=== PATIENT | female | born 1960 | race Caucasian/White ===

== ENCOUNTER 2016-07-23 09:48 | Inpatient (IN) | payer MEDICAID, OTHER ==
[~2016-07-23] VITALS: Ht 162.6 cm; Wt 62.2 kg
[~2016-07-23 09:48] MED LIST: QUET1TAB7 PO; SERO100T PO
[2016-07-23 09:51] VITALS: BP 138/81; PULSE 109; RESP 14; TEMP 97.7; O2SAT 98
--- NOTE | 2016-07-23 10:52 | RADRPT ---
EXAM DATE/TIME: 07/23/2016 10:15 [facility] COMPARISON: No previous studies available for comparison. INDICATIONS : Shortness of breath MEDICAL HISTORY : None. SURGICAL HISTORY : None. ENCOUNTER: Initial ACUITY: 1 day PAIN SCORE: 2/10 LOCATION: Bilateral chest FINDINGS: A single view of the chest demonstrates the lungs to be symmetrically aerated without evidence of mas s, infiltrate or effusion. The cardiomediastinal contours are unremarkable. Osseous structures are intact. CONCLUSION: Normal examination. Bishop Roca MD on July 23, 2016 at 10:49 Board Certified Radiologist. This report was verified electronically.
--- NOTE | 2016-07-23 11:02 | PD ---
HPI Chief Complaint: Respiratory Distress Time Seen by Provider: 10:55 Travel History International Travel<30 days: No Contact w/Intl Traveler<30days: No Traveled to known affect area: No History of Present Illness HPI 55-year-old female with history of schizophrenia, lives alone according to her brother, presents to the ER sent in by [facility] because they think that she can no longer take care of herself. She apparently is not taking care of herself according to her brother. Apparently, she was being evaluated there and became very short of breath, brother thinks that she may have been anxious. She is now settled down according to the brother. Modifying Factors: None Associated Signs & Symptoms: Medical clearance, shortness of breath episode, [place] act Risk Factors: History of schizophrenia PFSH Past Medical History Bipolar Disorder: Yes Anxiety: Yes Depression: Yes Cancer: No Cardiovascular Problems: Yes ([place] ) Diabetes: No Diminished Hearing: No Endocrine: No Gastrointestinal Disorders: No Genitourinary: No Headaches: No Immune Disorder: No Implanted Vascular Access Dvce: No Musculoskeletal: No Neurologic: No Psychiatric: No Reproductive: No Respiratory: No Myocardial Infarction: Yes Schizophrenia: Yes Seizures: No ?: Not : 4 Para: 3 Past Surgical History Surgical History: Unable to Obtain Other Surgery: No Social History Alcohol Use: No Tobacco Use: No Substance Use: No Allergies-Medications (Allergen,Severity, Reaction): Coded Allergies: Sulfa (Verified Allergy, Severe, 07/23/16) Reported Meds & Prescriptions Reported Meds & Active Scripts Active Seroquel (Quetiapine Fumarate) 100 Mg Tab 150 Mg PO HS 15 Days Review of Systems Except as stated in HPI: all other systems reviewed are Neg Physical Exam Narrative GENERAL: Well-nourished, well-developed mildly anxious middle age white female patient who is not in acute distress. Stares off into space, awake, alert, but not talking to me. SKIN: Warm and dry. HEAD: Normocephalic. EYES: No scleral icterus. No injection or drainage. NECK: Supple, trachea midline. CARDIOVASCULAR: Regular rate and rhythm without murmurs, gallops, or rubs. RESPIRATORY: Breath sounds equal bilaterally. No accessory muscle use. GASTROINTESTINAL: Abdomen soft, non-tender, nondistended. MUSCULOSKELETAL: No cyanosis, or edema. BACK: Nontender without obvious deformity. No CVA tenderness. Data Data Last Documented VS Vital Signs Date Time Temp Pulse Resp B/P Pulse Ox O2 Delivery O2 Flow Rate FiO2 07/23/16 09:51 97.7 109 14 138/81 98 Room Air Orders Chest, Single Ap (07/23/16 10:18) Complete Blood Count With Diff (07/23/16 10:55) Comprehensive Metabolic Panel (07/23/16 10:55) Drug Screen, Random Urine (07/23/16 10:55) Psych Screen (07/23/16 10:55) Us Abdomen Gallbladder (07/23/16 12:12) Labs Laboratory Tests Test 07/23/16 07/23/16 10:50 11:10 White Blood Count 10.9 TH/MM3 Red Blood Count 4.76 MIL/MM3 Hemoglobin 15.0 GM/DL Hematocrit 43.2 % Mean Corpuscular Volume 90.8 FL Mean Corpuscular Hemoglobin 31.4 PG Mean Corpuscular Hemoglobin 34.6 % Concent Red Cell Distribution Width 13.3 % Platelet Count 210 TH/MM3 Mean Platelet Volume 8.5 FL Neutrophils (%) (Auto) 72.5 % Lymphocytes (%) (Auto) 21.1 % Monocytes (%) (Auto) 6.0 % Eosinophils (%) (Auto) 0.2 % Basophils (%) (Auto) 0.2 % Neutrophils # (Auto) 7.9 TH/MM3 Lymphocytes # (Auto) 2.3 TH/MM3 Monocytes # (Auto) 0.7 TH/MM3 Eosinophils # (Auto) 0.0 TH/MM3 Basophils # (Auto) 0.0 TH/MM3 CBC Comment DIFF FINAL Differential Comment Sodium Level 137 MEQ/L Potassium Level 4.3 MEQ/L Chloride Level 105 MEQ/L Carbon Dioxide Level 21.7 MEQ/L Anion Gap 10 MEQ/L Blood Urea Nitrogen 17 MG/DL Creatinine 0.82 MG/DL Estimat Glomerular Filtration 73 ML/MIN Rate Random Glucose 92 MG/DL Calcium Level 9.2 MG/DL Total Bilirubin 0.5 MG/DL Aspartate Amino Transf 57 U/L (AST/SGOT) Alanine Aminotransferase 71 U/L (ALT/SGPT) Alkaline Phosphatase 122 U/L Total Protein 7.3 GM/DL Albumin 3.7 GM/DL Urine Opiates Screen NEG Urine Barbiturates Screen NEG Urine Amphetamines Screen NEG Urine Benzodiazepines Screen NEG Urine Cocaine Screen NEG Urine Cannabinoids Screen NEG MDM Medical Decision Making Medical Screen Exam Complete: Yes Emergency Medical Condition: Yes Medical Record Reviewed: Yes Interpretation(s) Laboratory Tests Test 07/23/16 10:50 Neutrophils (%) (Auto) 72.5 % (16.0-70.0) Neutrophils # (Auto) 7.9 TH/MM3 (1.8-7.7) Estimat Glomerular Filtration 73 ML/MIN (>89) Rate Aspartate Amino Transf 57 U/L (15-37) (AST/SGOT) Alanine Aminotransferase 71 U/L (10-53) (ALT/SGPT) Alkaline Phosphatase 122 U/L (45-117) Last 24 hours Impressions Chest X-Ray 07/23/16 1018 Signed Impressions: Service Date/Time: Saturday, July 23, 2016 10:15 - CONCLUSION: Normal examination. Bishop Roca MD Differential Diagnosis Medical clearance/anxiety/redness of breath/schizophrenia Narrative Course Patient is in no acute distress on evaluation. Her saturations are normal. Patient's brother states that she was anxious when initially evaluated at [facility]. She does not appear to be anxious now. I suspect that shortness of breath may have been secondary to anxiety. Chest x-ray did not show any signs of acute pulmonary processes. Her lab work didn't indicate some mild elevation of liver enzymes of unknown etiology. She has not been vomiting and abdomen exam is fairly nontender. Right upper quadrant ultrasound was done to evaluate further and did not show any signs of acute processes. At this point, my plan would be to medically clear her for psychiatric evaluation. Diagnosis Primary Impression: Schizophrenia Disposition: 65 DISC TO [facility] Condition: Stable Rodo Head MD Jul 23, 2016 11:02
[2016-07-23 11:23] LABS: AUTOMATED NEUTROPHIL # 7.9 TH/MM3 (1.8-7.7); BASOPHIL % 0.2 % (0.0-2.0); EOSINOPHIL % 0.2 % (0.0-4.0); HEMATOCRIT 43.2 % (35.0-46.0); HEMO FLAGS DIFF FINAL; LYMPH % 21.1 % (9.0-44.0); LYMPHOCYTE # 2.3 TH/MM3 (1.0-4.8); MEAN CELL VOLUME 90.8 FL (80.0-100.0); MEAN CORPUSCULAR HEMOGLOBIN 31.4 PG (27.0-34.0); MEAN CORPUSCULAR HGB CONC 34.6 % (32.0-36.0); NEUT % 72.5 % (16.0-70.0); PLATELET COUNT 210 TH/MM3 (150-450); RED BLOOD COUNT 4.76 MIL/MM3 (4.00-5.30); RED CELL DISTRIBUTION WIDTH 13.3 % (11.6-17.2); WHITE BLOOD COUNT 10.9 TH/MM3 (4.0-11.0)
[2016-07-23 11:29] LABS: AMPHETAMINE, URINE NEG (NEG); BARBITURATES, URINE NEG (NEG); COCAINE, URINE NEG (NEG)
[2016-07-23 11:58] LABS: ALKALINE PHOSPHATASE 122 U/L (45-117); ALT (GPT) 71 U/L (10-53); ANION GAP 10 MEQ/L (5-15); AST (GOT) 57 U/L (15-37); BICARBONATE 21.7 MEQ/L (21.0-32.0); BLOOD UREA NITROGEN 17 MG/DL (7-18); CHLORIDE 105 MEQ/L (98-107); GLOMERULAR FILTRATION RATE 73 ML/MIN (>89); SODIUM (NA) 137 MEQ/L (136-145); TOTAL BILIRUBIN ADULT 0.5 MG/DL (0.2-1.0)
[2016-07-23 12:02] LABS: POTASSIUM 4.3 MEQ/L (3.5-5.1)
[2016-07-23 14:00] VITALS: BP 131/71; PULSE 97; RESP 17; O2SAT 97
--- NOTE | 2016-07-23 14:22 | RADRPT ---
EXAM DATE/TIME: 07/23/2016 13:18 [facility] COMPARISON: No previous studies available for comparison. INDICATIONS : Nausea and vomiting. MEDICAL HISTORY : Myocardial infarction. Schizophrenia. Bipolar disorder. SURGICAL HISTORY : Unable to obtain. ENCOUNTER: Initial ACUITY: 1 day PAIN SCORE: Nonresponsive. LOCATION: Right upper quadrant MEASUREMENTS: LIVER: 13.3 cm length COMMON DUCT: 3 mm RIGHT KIDNEY: 10.2 x 5.2 x 5.0 cm FINDINGS: LIVER: Normal echotexture without focal lesion or ductal dilatation. COMMON DUCT: No intraluminal mass or stone visualized. GALLBLADDER: Contains no stones, demonstrates no wall thickening or pericholecystic fluid. PANCREAS: Not visualized due to overlying bowel gas.. RIGHT KIDNEY: No evidence of hydronephrosis, stone, or mass. CONCLUSION: Normal examination. Pancreas not visualized due to overlying bowel gas Bishop Roca MD on July 23, 2016 at 14:19 Board Certified Radiologist. This report was verified electronically.
[2016-07-23 18:25] VITALS: BP_SYST 0
[2016-07-23 22:10] VITALS: BP 136/69; PULSE 97; RESP 20; O2SAT 97
[2016-07-24 02:15] VITALS: BP 121/64; PULSE 99; RESP 18; TEMP 98; O2SAT 97
--- NOTE | 2016-07-24 10:03 | PD ---
History of Present Illness Chief Complaint: Respiratory Distress Time Seen by Provider: 09:45 Travel History International Travel<30 Days: No Contact w/Intl Traveler<30days: No Known affected area: No Legal Status Legal Status: Voluntary History of Present Illness: History of Present Illness 55-year-old female with history of schizophrenia who presents to the ER on a voluntary status for a psychiatric evaluation. The patient was taken to [facility] by her brother because he thinks that she can no longer take care of herself and not taking care of herself according to her brother. Apparently while she was being being evaluated there she became very short of breath and was sent here for medical clearance.She was evaluated and medically cleared by the ED and referred to psychiatry for further evaluation. Staff was unable to contact her brother yesterday for collateral information. As per EMR this patient was most recently hospitalized at [facility] on Jun 17 and discharged on Jun 21, 2016. She was under the care of Dr. Rojo. Since her discharge she has been to ED x 3 for psychiatric complaints. Patient is seen in J pod. Awake, alert female who appears disheveled in her appearance. . She has been calm and has not presented any behavioral concerns. She slept well. She answers questions but there is increased latency of response. She appears internally preoccupied. She denies any suicidal or homicidal ideation, intent or plan. She denies any hallucinations and states " I hear what is going on ". When asked why she came to the hospital she states " My chest was heavy". When asked if she has been taking care of herself she does state that she has been eating. Clinical information is limited as she does not provide much information. I have placed a call to her brother Mau at [phone]. I am unable to leave a message as the mail box is full. PFSH Past Medical History Bipolar Disorder: Yes Anxiety: Yes Depression: Yes Cancer: No Cardiovascular Problems: Yes ([place] ) Diabetes: No Diminished Hearing: No Endocrine: No Gastrointestinal Disorders: No Genitourinary: No Headaches: No Immune Disorder: No Implanted Vascular Access Dvce: No Musculoskeletal: No Neurologic: No Psychiatric: No Reproductive: No Respiratory: No Myocardial Infarction: Yes Schizophrenia: Yes Seizures: No ?: Not : 4 Para: 3 Past Surgical History Surgical History: Unable to Obtain Other Surgery: No Psychiatric History Psychiatric History Hx Psychiatric Treatment: HAD SOME TREATMENT IN [place] PRIOR TO HER BROTHER MOVING HERE AGO. WAS DISCHARGED FROM [facility] Novemebr 25 History of Inpatient Treatment: Yes Guns or firearms in home: No Social History Single female who lives with her brother Hx Alcohol Use: No Hx Tobacco Use: No Hx Substance Use: No Hx of Substance Use Treatment: No Family Psychiatric History Unknown at this time Allergies-Medications (Allergen,Severity, Reaction): Coded Allergies: Sulfa (Verified Allergy, Severe, 07/23/16) Reported Meds & Prescriptions Reported Meds & Active Scripts Active Seroquel (Quetiapine Fumarate) 100 Mg Tab 150 Mg PO HS 15 Days Review of Systems ROS Limitations: Clinical Condition Exam Alert: Yes [place]: Person Mood: Other (withdrawn) Affect: Restricted Speech: Clear (slowed responses) Memory Intact: Comment (not formally tested. ) Hallucinations: Other (denies but appears internally preocupied at this time.) Suicidal: Ideation (deneis any) Homicidal: Ideation Insight/Judgement poor. Poor MDM Medical Decision Making Medical Record Reviewed: Yes Assessment/Plan 55 year old female with history of schizophrenia who is under a voluntary status for psychiatric evaluation for inability to care for herself. This patient has presented to Ed x 3 since her discharge from [facility] on June 21, 2016. Patient is a poor historian and we have been unable to contact her brother for further information. Due to multiple representations to the Ed in a short amount of time and inability to obtain information from her brother she will be admitted to [facility] for further evaluation, treatment and stabilization. Orders Chest, Single Ap (07/23/16 10:18) Complete Blood Count With Diff (07/23/16 10:55) Comprehensive Metabolic Panel (07/23/16 10:55) Drug Screen, Random Urine (07/23/16 10:55) Psych Screen (07/23/16 10:55) Us Abdomen Gallbladder (07/23/16 12:12) Diet Regular Basic (07/23/16 Dinner) Diet Regular Basic (07/24/16 Breakfast) Diet Regular Basic (07/24/16 Lunch) Results Vital Signs Date Time Temp Pulse Resp B/P Pulse Ox O2 Delivery O2 Flow Rate FiO2 07/24/16 02:15 98.0 99 18 121/64 97 07/23/16 22:10 97 20 136/69 97 07/23/16 18:25 0/ 07/23/16 14:00 97 17 131/71 97 Room Air Laboratory Tests Test 07/23/16 07/23/16 10:50 11:10 White Blood Count 10.9 Red Blood Count 4.76 Hemoglobin 15.0 Hematocrit 43.2 Mean Corpuscular Volume 90.8 Mean Corpuscular Hemoglobin 31.4 Mean Corpuscular Hemoglobin 34.6 Concent Red Cell Distribution Width 13.3 Platelet Count 210 Mean Platelet Volume 8.5 Neutrophils (%) (Auto) 72.5 Lymphocytes (%) (Auto) 21.1 Monocytes (%) (Auto) 6.0 Eosinophils (%) (Auto) 0.2 Basophils (%) (Auto) 0.2 Neutrophils # (Auto) 7.9 Lymphocytes # (Auto) 2.3 Monocytes # (Auto) 0.7 Eosinophils # (Auto) 0.0 Basophils # (Auto) 0.0 CBC Comment DIFF FINAL Differential Comment Sodium Level 137 Potassium Level 4.3 Chloride Level 105 Carbon Dioxide Level 21.7 Anion Gap 10 Blood Urea Nitrogen 17 Creatinine 0.82 Estimat Glomerular Filtration 73 Rate Random Glucose 92 Calcium Level 9.2 Total Bilirubin 0.5 Aspartate Amino Transf 57 (AST/SGOT) Alanine Aminotransferase 71 (ALT/SGPT) Alkaline Phosphatase 122 Total Protein 7.3 Albumin 3.7 Urine Opiates Screen NEG Urine Barbiturates Screen NEG Urine Amphetamines Screen NEG Urine Benzodiazepines Screen NEG Urine Cocaine Screen NEG Urine Cannabinoids Screen NEG Diagnosis Primary Impression: Schizophrenia Admitting Information Admitting Physician Requests: Admit Disposition: 65 DISC TO PSYCH CARE FACILITY Condition: Stable Problem Qualifiers Primary Impression: Schizophrenia Qualified Code: F20.9 - Schizophrenia, unspecified type Lynnette Perez Jul 24, 2016 10:03
[2016-07-24 10:30] VITALS: BP 112/59; PULSE 99; RESP 18
[2016-07-24] MEDS ORDERED: ALUMINUM/MAGNESIUM/SIMETH 30 ML CUP PO PRN (12:00)
[2016-07-24] MEDS ORDERED: MAGNESIUM HYDROXIDE SUSP 30 ML CUP PO PRN (12:00)
[2016-07-24 13:40] VITALS: BP 114/77; PULSE 110; RESP 18; TEMP 97.8
[2016-07-24 13:53] VITALS: PULSE 88
--- NOTE | 2016-07-24 18:24 | HHI.HP ---
Provisional Diagnosis Admission Date Jul 24, 2016 at 11:55 [place] I. 1. Schizophrenia, undifferentiated type, acute exacerbation [place] II. Deferred [place] V. GAF is 35 presently Certification of Person's Competence To Provide Express and Informed Consent I have personally examined Jessica Villarreal , a person being served at [facility] on, Jul 24, 2016 18:23. Express and informed consent means consent voluntarily given in writing, by a competent person, after sufficient explanation and disclosure of the subject matter involved to enable the person to make a knowing and willful decision without any element of force, fraud, deceit, duress, or other form of constraint or coercion. This person is 18 years of age or older, is not now known to be incompetent to consent to treatment with a guardian advocate, and does not have a health care surrogate or proxy currently making medical treatment decisions. I have found this person to be one of the following: [x] Competent to provide express and informed consent, as defined above, for voluntary admission to this facility and is competent to provide express and informed consent for treatment. He/she has the consistent capacity to make well reasoned, willful, and knowing decisions concerning his or her medical or mental health treatment. The person fully and consistently understands the purpose of the admission for examination/placement and is fully capable of personally exercising all rights assured under [place] Incompetent to provide express and informed consent to voluntary admission, and this is incompetent to provide express and informed consent to treatment. The person must be transferred to involuntary status and a petition for a guardian advocate filed with the Circuit Court. [] Refusing to provide express and informed consent to voluntary admission but is competent to provide express and informed consent for treatment. The person must be discharged or transferred to involuntary status. Form shall be completed within 24 hours of a person's arrival at the receiving facility and filed in the clinical record of each person: 1. Admitted on a voluntary basis 2. Permitted to provide express and informed consent to his/her own treatment 3. Allowed to transfer from involuntary to voluntary status 4. Prior to permitting a person to consent to his or her own treatment after having been previously found incompetent to consent to treatment. History of Present Illness Capacity: Has Capacity HPI Ms. Villarreal is a 55-year-old female with a history of schizophrenia who presented voluntarily to the emergency department with complaints of shortness of breath. Patient was evaluated by the ED provider and it was felt that patient's symptoms were chiefly psychiatric in origin. Patient was evaluated by psychiatric nurse practitioner recommended admission to the inpatient psychiatric unit. Patient is known to me from recent psychiatric admission in May. EMR reviewed. Patient seen and examined. Chart reviewed. Case discussed with nursing staff who notes that the patient was quite malodorous and disheveled on arrival here. She also notes that the patient had the supply of Seroquel that had been provided to her on discharge from the hospital unopened in a sealed paper bag. On my examination today, the patient has some degree of behavioral disorganization and disinhibition, belching repeatedly throughout the examination. She says that she has come into the hospital because "I had an episode." She reports that she has been adherent with her psychotropic medications, but this seems questionable given the information from nursing staff noted above. She has some degree of thought disorder with thought blocking. She denies audiovisual hallucinations but is frankly responding to internal stimuli, and when I note this to her she does agree that she is in fact experiencing AVH. Her mood is good and her sleep and appetite are fair. She denies any suicidal or homicidal thoughts. The remainder of the psychiatric ROS is negative. Past psychiatric history: Patient is likely an unreliable historian in her present state. Please see previous history and physical examination. Patient does maintain that she has been following up psychiatrically on an outpatient basis. She denies any interval psychiatric admissions or suicide attempts. Review of Systems ROS Limitations: Psychotic, Poor Historian Other No reported headache, vision or hearing changes, chest pain, shortness of breath , bowel or bladder issues. No other physical complaints today. Past Psych History Psychological trauma history No reported trauma history to me Violence risk - others (6 mos) Lower imminent risk. No homicidal ideation. Violence risk - self (6 mos) Concerned that this is elevated due to self-neglect. Substance Abuse History Drugs/Alcohol past 12 months Patient denies any abuse of drugs or alcohol. Toxicology negative on presentation here. Past Family Social History Coded Allergies: Sulfa (Verified Allergy, Severe, 07/23/16) Past Medical History See electronic medical record Active Scripts Quetiapine (Seroquel)100 Mg Aoo010 Mg PO HS 15 Days Ref 1 Prov:Neil Rojo MD 06/21/16 Discontinued Scripts Quetiapine 25 Mg Tab25 Mg PO BID@09,13 15 Days Ref 1 Prov:Neil Rojo MD 06/21/16 Current Medications Medications (Trade) Dose Ordered Sig/Preet Route Start Time Stop Time Status Last Admin (Tylenol) 650 mg Q4H PRN PO 07/24/16 12:00 (Milk Of Magnesia Liq) 30 ml DAILY PRN PO 07/24/16 12:00 (Mag-Al Plus Susp Liq) 30 ml Q6H PRN PO 07/24/16 12:00 Family History Patient acknowledges a family history of psychiatric illness but is unable to describe exactly what sort of family history she has. Social History Patient reports that she is no longer living with her brother and has been staying by herself. She has a 12th grade education. She is presently on disability. She has 3 children and some grandchildren. She denies any or legal history. No reported access to guns or firearms. Patient's Strengths (min. 2) In a monitored setting. Verbally fluent. Physical Exam A physical examination was completed in the emergency room by the ER staff and the patient was medically cleared. On my examination today, the patient appears to be in no acute physical distress. She does have some chewing movements of her mouth but otherwise no abnormal motor movements are noted. In particular no hand tremor, no dystonia, no other dyskinetic movements. Labs and vital signs reviewed. Vital Signs Vital Signs Date Time Temp Pulse Resp B/P Pulse Ox O2 Delivery O2 Flow Rate FiO2 07/24/16 13:53 88 07/24/16 13:40 97.8 18 114/77 07/24/16 10:30 Room Air 07/24/16 02:15 97 Lab Results Item Value Date Time White Blood Count 10.9 TH/MM3 07/23/16 1050 Hemoglobin 15.0 GM/DL 07/23/16 1050 Platelet Count 210 TH/MM3 07/23/16 1050 Sodium Level 137 MEQ/L 07/23/16 1050 Potassium Level 4.3 MEQ/L 07/23/16 1050 Chloride Level 105 MEQ/L 07/23/16 1050 Carbon Dioxide Level 21.7 MEQ/L 07/23/16 1050 Blood Urea Nitrogen 17 MG/DL 07/23/16 1050 Creatinine 0.82 MG/DL 07/23/16 1050 Aspartate Amino Transf (AST/SGOT) 57 U/L H 07/23/16 1050 Alanine Aminotransferase (ALT/SGPT) 71 U/L H 07/23/16 1050 Alkaline Phosphatase 122 U/L H 07/23/16 1050 EKG reviewed Mental Status Examination Patient is in hospital [facility]. She is disheveled. She is awake and alert and oriented to person, place and date. No evidence of delirium. Motoric abnormalities as noted above. Speech is somewhat halting. Language and fund of knowledge are difficult to assess given her thought disorder but seem adequate for age. Mood is described as good, and affect is somewhat silly and inappropriate to the situation. Thought process slowed with thought blocking. Denies AVH but appears internally preoccupied. No bernardo delusional material. Denies suicidal or homicidal ideation. Insight and judgment are fair at best. Previous Suicide Attempts: No Previous Homicide Attempts: No Assessment & Plan Problem List: (1) Schizophrenia ICD Code: F20.9 Assessment & Plan This is a 55-year-old female with psychiatric history as detailed above who presents on a voluntary basis to the emergency department and is now admitted to the inpatient psychiatric unit. The patient has a history of schizophrenia, and it appears that she has been nonadherent with her psychotropic medications. She did respond nicely to Seroquel last time. Presently she has disorganized behavior and thought processes with thought blocking. She does have some chewing movements of her mouth which may reflect poor dentition or other dental/oral issues or may represent withdrawal emergent dyskinesias. Patient requires psychiatric admission at this time for safety, observation and stabilization. --Admit inpatient --Voluntary status --Check LFTs in the morning. Hemoglobin A1c and lipid panel. --Resume Seroquel but at reduced dose given likely nonadherence. Seroquel 100 mg at bedtime. --Atarax as needed for anxiety. Cogentin as needed for EPS. --Vitals every shift --Counselor to see --Disposition planning --Estimated length of stay: 5-7 days Discharge Planning Pending psychiatric stabilization Request HC Surrog/Guard Advoc?: No Problem Qualifiers (1) Schizophrenia: Qualified Code: F20.3 - Undifferentiated schizophrenia Neil Rojo MD Jul 24, 2016 18:24
[2016-07-24] MEDS ORDERED: BENZTROPINE MESYLATE 2 MG/2 ML VIAL IM PRN (18:30)
[2016-07-24] MEDS ORDERED: BENZTROPINE MESYLATE 1 MG TAB PO PRN (18:30)
[2016-07-24] MEDS ORDERED: QUEtiapine FUMARATE 100 MG TAB PO SCH (21:00)
[2016-07-25 06:13] VITALS: BP 93/62; PULSE 92; RESP 16; TEMP 97.7
[2016-07-25 07:48] LABS: ALKALINE PHOSPHATASE 118 U/L (45-117); ALT (GPT) 52 U/L (10-53); AST (GOT) 22 U/L (15-37); HDL CHOLESTEROL 54.9 MG/DL (40.0-60.0); INDIRECT BILIRUBIN 0.4 MG/DL (0.0-0.8); LDL CHOLESTEROL 97 MG/DL (0-99); TOTAL BILIRUBIN ADULT 0.5 MG/DL (0.2-1.0)
--- NOTE | 2016-07-25 11:42 | EKG ---
Date Performed: 07/24/2016 Time Performed: 16:24:46 PTAGE: 55 years EKG: Sinus rhythm POSSIBLE RIGHT VENTRICULAR CONDUCTION DELAY BORDERLINE ECG NO PREVIOUS TRACING DOCTOR: Jesse Jhaveri Interpretating Date/Time 07/25/2016 11:39:06
--- NOTE | 2016-07-25 11:51 | HHI.PYPN ---
Subjective Remarks Patient was seen and discussed with the staff radiation therapist. Patient reported that she has been keeping to herself and hallucinating. No behavior or management problem reported. At times she has been burping. She also had some involuntary movement of the tongue muscles. May be tardive dyskinesia. She was advised to continue with the same treatment. Patient is compliant in taking medication Review of Systems Psychiatric: COMPLAINS OF: Mood changes, Depression, Hallucinations, Delusions Other Review of systems same as that of 07/24/16 Objective Alert: Yes [place]: Person, Place Mood: Other (withdrawn) Affect: Restricted Memory Intact: Comment (not formally tested. But seems impaired for recent events) Hallucinations: Other (denies but appears internally preocupied at this time.) Delusions: Yes Delusion Type: Paranoid Suicidal: Ideation (deneis any) Homicidal: Ideation Insight/Judgement Limited to poor Labs Test 07/25/16 06:40 Total Bilirubin 0.5 MG/DL Direct Bilirubin 0.1 MG/DL Indirect Bilirubin 0.4 MG/DL Aspartate Amino Transf 22 U/L (AST/SGOT) Alanine Aminotransferase 52 U/L (ALT/SGPT) Alkaline Phosphatase 118 U/L Total Protein 6.7 GM/DL Albumin 3.3 GM/DL Triglycerides Level 94 MG/DL Cholesterol Level 171 MG/DL LDL Cholesterol 97 MG/DL HDL Cholesterol 54.9 MG/DL Cholesterol/HDL Ratio 3.11 RATIO Vitals/IOs Vital Signs Date Time Temp Pulse Resp B/P Pulse Ox O2 Delivery O2 Flow Rate FiO2 07/25/16 06:13 97.7 92 16 93/62 07/24/16 10:30 Room Air 07/24/16 02:15 97 Assessment & Plan Problem List: (1) Schizophrenia ICD Code: F20.9 Assessment & Plan Estimated LOS: days Justification for Cont. Inpt. Monitoring and titrating of the medication to stabilize psychotic symptoms Request HC Surrog/Guard Advoc?: No Problem Qualifiers (1) Schizophrenia: Qualified Code: F20.3 - Undifferentiated schizophrenia Claudy Reed MD Jul 25, 2016 11:51
[2016-07-25] MEDS: hydrOXYzine HCL 50 MG TAB PO PRN ×2 (12:56→21:22)
[2016-07-25 13:14] LABS: HEMOGLOBIN A1a 1.5 %; HEMOGLOBIN A1b 0.9 %; HEMOGLOBIN Ao 85.2 %; HEMOGLOBIN F 1.3 %; HEMOGLOBIN LA1C 1.8 %; HEMOGLOBIN P3 3.5 %
[2016-07-25] MEDS: QUEtiapine FUMARATE 100 MG TAB PO SCH (17:06)
[2016-07-25 18:19] VITALS: BP 110/74; PULSE 86; RESP 18; TEMP 98.3
[2016-07-26] MEDS: ACETAMINOPHEN 325 MG TAB PO PRN (00:30)
[2016-07-26 05:24] VITALS: BP 105/55; PULSE 71; RESP 18; TEMP 98.7; O2SAT 98
[2016-07-26] MEDS: QUEtiapine FUMARATE 100 MG TAB PO SCH ×2 (09:31→12:10)
--- NOTE | 2016-07-26 15:26 | HHI.PYPN ---
Subjective Remarks Pt seen and examined in coverage for Dr. West. Chart reviewed. Case d/w RN. On my examination today, patient continues to display a silly affect. Wants to adjust med because "Seroquel didn't put me to sleep." Denies SI/HI/AVH. Denies side effects from meds. Review of Systems ROS Limitations: Poor Historian Other No reported somatic complaints. Objective Alert: Yes [place]: Person, Place (at least) Mood: Calm Affect: Other (silly affect) Memory Intact: Comment (Not formally assessed.) Hallucinations: Other (Denies AVH) Delusions: No Delusion Type: Other (No bernardo delusions) Suicidal: Ideation (Denies SI) Homicidal: Ideation (Denies HI) Insight/Judgement Poor Remarks No abnormal motor movements noted. Labs Labs reviewed. Vitals/IOs Vital Signs Date Time Temp Pulse Resp B/P Pulse Ox O2 Delivery O2 Flow Rate FiO2 07/26/16 05:24 98.7 71 18 105/55 98 07/24/16 10:30 Room Air Assessment & Plan Problem List: (1) Schizophrenia ICD Code: F20.9 Assessment & Plan Adjust Seroquel dosing to place bulk of the dose at HS. Continue other medications and care as ordered. Justification for Cont. Inpt. Adjusting medications. Discharge Planning Pending psychiatric stabilization. Request HC Surrog/Guard Advoc?: No Problem Qualifiers (1) Schizophrenia: Qualified Code: F20.3 - Undifferentiated schizophrenia Neil Rojo MD Jul 26, 2016 15:25
[2016-07-26 19:32] VITALS: BP 115/58; PULSE 93; RESP 18; TEMP 97.8; O2SAT 98
[2016-07-26] MEDS: hydrOXYzine HCL 50 MG TAB PO PRN (21:20)
[2016-07-26] MEDS: QUEtiapine FUMARATE 200 MG TAB PO SCH (21:20)
[2016-07-27 06:20] VITALS: BP 112/54; PULSE 104; RESP 18; TEMP 98.7; O2SAT 96
[2016-07-27] MEDS: QUEtiapine FUMARATE 100 MG TAB PO SCH (09:21)
[2016-07-27 10:11] VITALS: BP 97/62; PULSE 89; RESP 18; O2SAT 100
--- NOTE | 2016-07-27 12:48 | HHI.PYPN ---
Subjective Remarks Patient seen and examined with nursing staff. Chart reviewed. Case discussed with nursing staff reports patient has been no behavioral problem. On my examination today, patient is eating her lunch in the day area. She declines extended interview. She has no complaints, and denies side effects from medications. Review of Systems ROS Limitations: Psychotic, Poor Historian Other No physical complaints today Objective Alert: Yes [place]: Person, Place Mood: Calm Affect: Blunted Memory Intact: Comment (Not formally assessed.) Hallucinations: Other (no AVH) Delusions: No Delusion Type: Other (limited sample but no bernardo delusions) Suicidal: Ideation (no SI voiced) Homicidal: Ideation (no HI voiced) Insight/Judgement Poor Remarks Appears to have some EPS but no dyskinesias. No other motoric abnormalities noted. Speech wnl for rate. Labs Labs reviewed. No new labs. Vitals/IOs Vital Signs Date Time Temp Pulse Resp B/P Pulse Ox O2 Delivery O2 Flow Rate FiO2 07/27/16 10:11 89 18 97/62 100 07/27/16 06:20 98.7 07/24/16 10:30 Room Air Assessment & Plan Problem List: (1) Schizophrenia ICD Code: F20.9 Assessment & Plan Add some scheduled Cogentin for probable EPS. Continue other medications and care as ordered. Justification for Cont. Inpt. Risk for decompensation Discharge Planning Per Dr. West Request HC Surrog/Guard Advoc?: No Problem Qualifiers (1) Schizophrenia: Qualified Code: F20.3 - Undifferentiated schizophrenia Neil Rojo MD Jul 27, 2016 12:48
[2016-07-27] MEDS ORDERED: PILL SPLITTER OTHER PRN (13:15)
[2016-07-27 18:00] VITALS: PULSE 87; RESP 16; O2SAT 99
[2016-07-27] MEDS: QUEtiapine FUMARATE 200 MG TAB PO SCH (21:42)
[2016-07-27] MEDS: BENZTROPINE MESYLATE 1 MG TAB PO SCH (21:43)
[2016-07-28 06:36] VITALS: BP 93/63; PULSE 83; RESP 18; TEMP 97.9; O2SAT 96
[2016-07-28] MEDS: BENZTROPINE MESYLATE 1 MG TAB PO SCH ×2 (08:36→21:01)
[2016-07-28] MEDS: QUEtiapine FUMARATE 100 MG TAB PO SCH (08:36)
--- NOTE | 2016-07-28 15:39 | HHI.PYPN ---
Subjective Remarks Patient seen and examined with nursing staff. Chart reviewed. Case discussed with nursing staff. On my examination today, patient presents as a little disorganized. She denies AVH but appears somewhat internally preoccupied. EPS appears to be resolved with addition of Cogentin. Denies side effects from medications besides some mild sedation. Review of Systems ROS Limitations: Poor Historian Other No physical complaints today besides mild sedation Objective Alert: Yes [place]: Person, Place Mood: Calm Affect: Blunted Memory Intact: Comment (not assessed) Hallucinations: Other (denies but appears somewhat internally preoccupied) Delusions: No Delusion Type: Other (no delusions) Suicidal: Ideation (no SI voiced) Homicidal: Ideation (no HI voiced) Insight/Judgement Poor Remarks Thought process somewhat disorganized. Labs Labs reviewed. No new labs. Vitals/IOs Vital Signs Date Time Temp Pulse Resp B/P Pulse Ox O2 Delivery O2 Flow Rate FiO2 07/28/16 06:36 97.9 83 18 93/63 96 07/24/16 10:30 Room Air Vital signs reviewed. Blood pressure a little on the low side but within the historical range for this patient. Assessment & Plan Problem List: (1) Schizophrenia ICD Code: F20.9 Assessment & Plan EPS improved with addition of Cogentin. Continue current medications as ordered. Continue other care as ordered. Justification for Cont. Inpt. Risk for decompensation Discharge Planning Per Dr. West Request HC Surrog/Guard Advoc?: No Problem Qualifiers (1) Schizophrenia: Qualified Code: F20.3 - Undifferentiated schizophrenia Neil Rojo MD Jul 28, 2016 15:39
[2016-07-28 20:00] VITALS: BP 117/66; PULSE 83; RESP 17; TEMP 98.8; O2SAT 96
[2016-07-28] MEDS: QUEtiapine FUMARATE 200 MG TAB PO SCH (21:01)
[2016-07-29 05:43] VITALS: BP 109/65; PULSE 73; RESP 16; TEMP 98.3; O2SAT 96
[2016-07-29 06:23] VITALS: BP 109/65; PULSE 73; RESP 16; TEMP 98.3; O2SAT 96
[2016-07-29] MEDS: BENZTROPINE MESYLATE 1 MG TAB PO SCH ×2 (09:20→20:48)
[2016-07-29] MEDS: QUEtiapine FUMARATE 100 MG TAB PO SCH (09:20)
--- NOTE | 2016-07-29 13:02 | HHI.PYPN ---
Subjective Remarks Patient seen, chart reviewed, case discussed with staff Patient is reporting significant tiredness during the day. She is associating this with her daytime Seroquel, however it is possible that she is also having panic attacks and anxiety during the day contributing to her sense of fatigue. She reports she has episodes of SOB, increased HR, and fatigue which make her feel as if she is going to "pass out" Jessica is very suspicious to the point of being paranoid "Im not supposed to be talking to you" Review of Systems Except as stated in HPI: all other systems reviewed are Neg Psychiatric: COMPLAINS OF: Anxiety, Confusion, Mood changes, Depression, Agitation, Delusions Objective Alert: Yes [place]: Person, Place Mood: Anxious Affect: Flat, Blunted Memory Intact: Comment (not assessed) Hallucinations: Other ( appears somewhat internally preoccupied) Delusions: Yes Delusion Type: Other ("Im not supposed to be talking to you") Suicidal: Ideation (no SI voiced) Homicidal: Ideation (no HI voiced) Insight/Judgement poor Vitals/IOs Vital Signs Date Time Temp Pulse Resp B/P Pulse Ox O2 Delivery O2 Flow Rate FiO2 07/29/16 06:23 98.3 73 16 109/65 96 Assessment & Plan Problem List: (1) Schizophrenia Assessment & Plan: Patient is articulating psychotic thoughts and has been concerned about daytime fatigue. I will see if changing the daytime Seroquel dose helps, however I am concerned the patient may need neuroleptic adjustment if more improvement does not occur. ICD Code: F20.9 Assessment & Plan Estimated LOS: days Justification for Cont. Inpt. impairment in reality construction, medication changes requiring active monitoring , risk of decompensation Request HC Surrog/Guard Advoc?: No Problem Qualifiers (1) Schizophrenia: Qualified Code: F20.3 - Undifferentiated schizophrenia Chioma West MD Jul 29, 2016 13:01
[2016-07-29] MEDS: QUEtiapine FUMARATE 200 MG TAB PO SCH (20:48)
[2016-07-30 06:04] VITALS: BP 108/55; PULSE 71; RESP 18; TEMP 98.1; O2SAT 98
[2016-07-30] MEDS: QUEtiapine FUMARATE 25 MG TAB PO SCH ×2 (08:57→13:14)
[2016-07-30] MEDS: BENZTROPINE MESYLATE 1 MG TAB PO SCH ×2 (08:57→21:32)
--- NOTE | 2016-07-30 11:40 | HHI.PYPN ---
Subjective Remarks Patient was seen and discussed with the staff air defense officer. Patient reports reported that she has not been able to sleep well. She feels safe quit for putting and admitted to hearing voices and feeling paranoid. With encouragement she has been med compliant. No behavior or management problem reported. We will adjust the medication. She needs to be in the hospital for monitoring of the medication and the risk of decompensation is there Review of Systems Except as stated in HPI: all other systems reviewed are Neg Psychiatric: COMPLAINS OF: Mood changes, Hallucinations, Delusions Objective Alert: Yes [place]: Person, Place Mood: Anxious, Depressed, Other (feeling sick) Affect: Flat, Blunted Memory Intact: Comment (not assessed but it seems impaired for recent events) Hallucinations: Auditory, Other ( appears somewhat internally preoccupied and admitted to auditory hallucinations) Delusions: Yes Delusion Type: Paranoid, Other ("Im not supposed to be talking to you") Suicidal: Ideation (no SI voiced) Homicidal: Ideation (no HI voiced) Insight/Judgement Limited Vitals/IOs Vital Signs Date Time Temp Pulse Resp B/P Pulse Ox O2 Delivery O2 Flow Rate FiO2 07/30/16 06:04 98.1 71 18 108/55 98 Assessment & Plan Problem List: (1) Schizophrenia ICD Code: F20.9 Assessment & Plan Estimated LOS: days Justification for Cont. Inpt. Impairment of reality testing would severely decompensated at a lower level of care and monitoring of the medication Request HC Surrog/Guard Advoc?: No Problem Qualifiers (1) Schizophrenia: Qualified Code: F20.3 - Undifferentiated schizophrenia Claudy Reed MD Jul 30, 2016 11:40
[2016-07-30] MEDS: ACETAMINOPHEN 325 MG TAB PO PRN (15:21)
[2016-07-30 20:00] VITALS: BP 138/67; PULSE 73; RESP 18; TEMP 98.2
[2016-07-30] MEDS: QUEtiapine FUMARATE 200 MG TAB PO SCH (21:32)
[2016-07-31 05:47] VITALS: BP 97/53; PULSE 84; RESP 16; TEMP 98.4; O2SAT 96
[2016-07-31] MEDS: BENZTROPINE MESYLATE 1 MG TAB PO SCH ×2 (08:33→20:43)
[2016-07-31] MEDS: QUEtiapine FUMARATE 25 MG TAB PO SCH ×2 (08:33→12:26)
--- NOTE | 2016-07-31 11:32 | HHI.PYPN ---
Subjective Remarks Patient was seen and discussed with the public health staff nurse. Patient claimed that she has been doing okay but still has lot of burping. Keeps to herself isolates herself she was encouraged to participate in all the therapeutic activity. Patient claimed that she has been living with her brother and gets along okay. She is compliant in taking medication. No behavior or management problem reported. Continue with the same treatment adjust the medication Review of Systems Except as stated in HPI: all other systems reviewed are Neg Psychiatric: COMPLAINS OF: Mood changes, Hallucinations, Delusions Objective Alert: Yes [place]: Person, Place Mood: Anxious, Depressed, Other (feeling sick) Affect: Flat, Blunted Memory Intact: Comment (not assessed but it seems impaired for recent events) Hallucinations: Auditory, Other ( appears somewhat internally preoccupied and admitted to auditory hallucinations) Delusions: Yes Delusion Type: Paranoid Suicidal: Ideation (no SI voiced) Homicidal: Ideation (no HI voiced) Insight/Judgement Limited Remarks Attention and concentration poor. Gait normal. Language normal. Fund of knowledge less than average Vitals/IOs Vital Signs Date Time Temp Pulse Resp B/P Pulse Ox O2 Delivery O2 Flow Rate FiO2 07/31/16 05:47 98.4 84 16 97/53 96 Assessment & Plan Problem List: (1) Schizophrenia ICD Code: F20.9 Assessment & Plan Estimated LOS: days Justification for Cont. Inpt. Risk of decompensation at a lower level of care Request HC Surrog/Guard Advoc?: No Problem Qualifiers (1) Schizophrenia: Qualified Code: F20.3 - Undifferentiated schizophrenia Claudy Reed MD Jul 31, 2016 11:32
[2016-07-31 19:00] VITALS: BP 184/63; PULSE 79; RESP 16; TEMP 98; O2SAT 97
[2016-07-31] MEDS: QUEtiapine FUMARATE 200 MG TAB PO SCH (20:43)
[2016-08-01 05:46] VITALS: BP 102/56; PULSE 74; RESP 18; TEMP 98.9; O2SAT 96
[2016-08-01] MEDS: BENZTROPINE MESYLATE 1 MG TAB PO SCH ×2 (08:43→20:30)
[2016-08-01] MEDS: QUEtiapine FUMARATE 25 MG TAB PO SCH ×2 (08:44→12:19)
--- NOTE | 2016-08-01 11:14 | HHI.PYPN ---
Subjective Remarks Patient was seen and discussed with the staff development nurse. Patient reported that she has been feeling little better. She slept well. She is not belching as much as she did before is reducing. Patient denied any suicidal ideation intentions or plan. Patient also denied any active auditory hallucinations but sometimes she looks preoccupied and internally stimulated. No behavior or management problem reported. No side effects were complained. Advised to continue with the same treatment Review of Systems Except as stated in HPI: all other systems reviewed are Neg Psychiatric: COMPLAINS OF: Confusion, Depression Objective Alert: Yes [place]: Person, Place Mood: Anxious, Depressed, Other (feeling sick) Affect: Flat, Blunted Memory Intact: Comment (not assessed but it seems impaired for recent events) Hallucinations: Auditory, Other ( appears somewhat internally preoccupied but patient denied any active auditory or visual hallucinations at this time) Delusions: Yes Delusion Type: Paranoid Suicidal: Ideation (no SI voiced) Homicidal: Ideation (no HI voiced) Insight/Judgement Limited Remarks Attention and concentration poor. Gait normal. Language normal. Fund of knowledge below average Vitals/IOs Vital Signs Date Time Temp Pulse Resp B/P Pulse Ox O2 Delivery O2 Flow Rate FiO2 08/01/16 05:46 98.9 74 18 102/56 96 Assessment & Plan Problem List: (1) Schizophrenia ICD Code: F20.9 Assessment & Plan Estimated LOS: days Justification for Cont. Inpt. Risk of decompensation at a lower level of care and monitoring of the medication Request HC Surrog/Guard Advoc?: No Problem Qualifiers (1) Schizophrenia: Qualified Code: F20.3 - Undifferentiated schizophrenia Claudy Reed MD Aug 01, 2016 11:14
[2016-08-01 19:45] VITALS: BP 151/77; PULSE 98; RESP 17; TEMP 97.7; O2SAT 100
[2016-08-01] MEDS: QUEtiapine FUMARATE 200 MG TAB PO SCH (20:30)
[2016-08-02 06:14] VITALS: BP 101/50; PULSE 76; RESP 19; TEMP 99; O2SAT 93
[2016-08-02] MEDS: QUEtiapine FUMARATE 25 MG TAB PO SCH ×2 (09:22→12:04)
[2016-08-02] MEDS: BENZTROPINE MESYLATE 1 MG TAB PO SCH ×2 (09:22→20:40)
--- NOTE | 2016-08-02 13:49 | HHI.PYPN ---
Subjective Remarks Patient was seen and discussed with the staff scientist patient reported that she has been feeling much better. She is not belching anymore. Her thoughts were organized her speech was slow without any evidence of loose association. She claimed that sometimes she does admit to hearing voices but they are fading away. Patient has been compliant in taking medication. No side effects were complained. She is feeling hopeful. No behavior or management problem reported. Continue with the same treatment Review of Systems Except as stated in HPI: all other systems reviewed are Neg Psychiatric: COMPLAINS OF: Mood changes, Depression, Hallucinations Objective Alert: Yes [place]: Person, Place Mood: Anxious, Depressed, Other (feeling sick) Affect: Flat, Blunted Memory Intact: Comment (not assessed but it seems impaired for recent events) Hallucinations: Auditory, Other Delusions: Yes Delusion Type: Paranoid Suicidal: Ideation (no SI voiced) Homicidal: Ideation (no HI voiced) Insight/Judgement Limited Remarks Attention and concentration improving. Gait normal. Language normal. Fund of knowledge average Vitals/IOs Vital Signs Date Time Temp Pulse Resp B/P Pulse Ox O2 Delivery O2 Flow Rate FiO2 08/02/16 06:14 99.0 76 19 101/50 93 Assessment & Plan Problem List: (1) Schizophrenia ICD Code: F20.9 Assessment & Plan Estimated LOS: days Justification for Cont. Inpt. Monitoring and titrating of the medication to stabilize her mood Request HC Surrog/Guard Advoc?: No Problem Qualifiers (1) Schizophrenia: Qualified Code: F20.3 - Undifferentiated schizophrenia Claudy Reed MD Aug 02, 2016 13:49
[2016-08-02 19:05] VITALS: BP 107/57; PULSE 91; RESP 16; TEMP 98; O2SAT 95
[2016-08-02] MEDS: QUEtiapine FUMARATE 300 MG TAB PO SCH (20:40)
[2016-08-03 06:21] VITALS: BP 92/60; PULSE 64; RESP 16; TEMP 98.5; O2SAT 98
[2016-08-03] MEDS: BENZTROPINE MESYLATE 1 MG TAB PO SCH ×2 (08:48→20:46)
[2016-08-03] MEDS: QUEtiapine FUMARATE 25 MG TAB PO SCH ×2 (08:48→12:14)
[2016-08-03 09:43] VITALS: BP 105/51; PULSE 84
[2016-08-03 19:51] VITALS: BP 109/72; PULSE 113; RESP 16; TEMP 97.4; O2SAT 97
[2016-08-03] MEDS: QUEtiapine FUMARATE 300 MG TAB PO SCH (20:46)
--- NOTE | 2016-08-03 22:03 | HHI.PYPN ---
Subjective Remarks Pt seen and discussed with staff. She remains depressed with poor self care and appetite. No medication side effects. She is isolative to her room,spending most of day lying in bed. Objective Alert: Yes [place]: Person, Place Mood: Anxious, Depressed Affect: Flat, Blunted Memory Intact: Comment (not assessed but it seems impaired for recent events) Hallucinations: Auditory, Other Delusions: Yes Delusion Type: Paranoid Suicidal: Ideation (no SI voiced) Homicidal: Ideation (no HI voiced) Insight/Judgement poor Vitals/IOs Vital Signs Date Time Temp Pulse Resp B/P Pulse Ox O2 Delivery O2 Flow Rate FiO2 08/03/16 19:51 97.4 113 16 109/72 97 Assessment & Plan Problem List: (1) Schizophrenia ICD Code: F20.9 Assessment & Plan Continue current tx plan. Estimated LOS: days Justification for Cont. Inpt. impairments in reality construction and self care, risk of further decompensation. Request HC Surrog/Guard Advoc?: No Problem Qualifiers (1) Schizophrenia: Qualified Code: F20.3 - Undifferentiated schizophrenia Dinora Martinez MD Aug 03, 2016 22:03
[2016-08-04 06:11] VITALS: BP 94/62; PULSE 69; RESP 19; TEMP 97.2
[2016-08-04] MEDS: QUEtiapine FUMARATE 25 MG TAB PO SCH ×2 (09:03→13:01)
[2016-08-04] MEDS: BENZTROPINE MESYLATE 1 MG TAB PO SCH ×2 (09:04→21:15)
--- NOTE | 2016-08-04 19:20 | HHI.PYPN ---
Subjective Remarks Pt seen and discussed with staff. She remains psychotic with AH. She is isolative to her room, only coming out for meals. Insight is poor. Compliant with medications. No side effects. Objective Alert: Yes [place]: Person, Place Mood: Depressed Affect: Flat, Blunted Memory Intact: Comment (fair) Hallucinations: Auditory, Other Delusions: Yes Delusion Type: Paranoid Suicidal: Ideation (denies) Homicidal: Ideation (denies) Insight/Judgement poor Vitals/IOs Vital Signs Date Time Temp Pulse Resp B/P Pulse Ox O2 Delivery O2 Flow Rate FiO2 08/04/16 06:11 97.2 69 19 94/62 08/03/16 19:51 97 Assessment & Plan Problem List: (1) Schizophrenia ICD Code: F20.9 Assessment & Plan Continue current tx plan.Estimated LOS: days Justification for Cont. Inpt. impairments in reality construction Request HC Surrog/Guard Advoc?: No Problem Qualifiers (1) Schizophrenia: Qualified Code: F20.3 - Undifferentiated schizophrenia Dinora Martinez MD Aug 04, 2016 19:19
[2016-08-04 19:42] VITALS: BP 97/64; PULSE 72; RESP 18; TEMP 98.3; O2SAT 99
[2016-08-04] MEDS: QUEtiapine FUMARATE 300 MG TAB PO SCH (21:15)
[2016-08-05] MEDS: BENZTROPINE MESYLATE 1 MG TAB PO SCH ×2 (09:15→20:13)
[2016-08-05] MEDS: QUEtiapine FUMARATE 25 MG TAB PO SCH ×2 (09:15→12:22)
--- NOTE | 2016-08-05 11:39 | HHI.PYPN ---
Subjective Remarks Patient was seen and discussed with the staffing branch manager. Over the weekend reportedly patient was seclusive isolated psychotic bizarre but no behavior or management problem reported. This morning patient reported that she denied any active auditory or visual hallucination and wants to go home. We will check with her family members. online services manager to assist. Patient was encouraged to participate in all the therapeutic activity and take the medication. No behavior or management problem reported continue with the same treatment Review of Systems Except as stated in HPI: all other systems reviewed are Neg Psychiatric: COMPLAINS OF: Anxiety, Confusion, Mood changes, Depression, Hallucinations Objective Alert: Yes [place]: Person, Place Mood: Anxious, Depressed Affect: Flat, Blunted Memory Intact: Comment (fair) Hallucinations: Auditory, Other Delusions: Yes Delusion Type: Paranoid Suicidal: Ideation (denies) Homicidal: Ideation (denies) Insight/Judgement Limited Vitals/IOs Vital Signs Date Time Temp Pulse Resp B/P Pulse Ox O2 Delivery O2 Flow Rate FiO2 08/04/16 19:42 98.3 72 18 97/64 99 Assessment & Plan Problem List: (1) Schizophrenia ICD Code: F20.9 Assessment & Plan Estimated LOS: days Justification for Cont. Inpt. Risk of decompensation at a lower level of care Request HC Surrog/Guard Advoc?: No Problem Qualifiers (1) Schizophrenia: Qualified Code: F20.3 - Undifferentiated schizophrenia Claudy Reed MD Aug 05, 2016 11:39
[2016-08-05] MEDS: ACETAMINOPHEN 325 MG TAB PO PRN ×2 (14:16→20:13)
[2016-08-05 19:48] VITALS: BP 110/69; PULSE 77; RESP 18; TEMP 98.4; O2SAT 97
[2016-08-05] MEDS: QUEtiapine FUMARATE 300 MG TAB PO SCH (20:13)
[2016-08-06 06:23] VITALS: BP 107/58; PULSE 70; RESP 16; TEMP 97.8; O2SAT 97
[2016-08-06] MEDS: BENZTROPINE MESYLATE 1 MG TAB PO SCH ×2 (08:59→20:21)
[2016-08-06] MEDS: QUEtiapine FUMARATE 25 MG TAB PO SCH ×2 (08:59→12:31)
--- NOTE | 2016-08-06 12:03 | HHI.PYPN ---
Subjective Remarks Patient was seen and discussed with the staff scientist. Patient claimed that she was not feeling well this morning but she is doing okay now. She denied any active auditory or visual hallucinations. No behavior or management problem reported. environmental services floor tech are working on checking with the family members regarding aftercare and discharge planning. Patient denied any suicidal ideation intentions or plan. No side effects were complained. She is compliant in taking medication. Continue with the same treatment Review of Systems Except as stated in HPI: all other systems reviewed are Neg Psychiatric: COMPLAINS OF: Mood changes, Depression Objective Alert: Yes [place]: Person, Place Mood: Anxious, Depressed Affect: Flat, Blunted Memory Intact: Comment (fair) Hallucinations: Auditory, Other Delusions: Yes Delusion Type: Other Suicidal: Ideation (denies) Homicidal: Ideation (denies) Insight/Judgement Limited Vitals/IOs Vital Signs Date Time Temp Pulse Resp B/P Pulse Ox O2 Delivery O2 Flow Rate FiO2 08/06/16 06:23 97.8 70 16 107/58 97 Assessment & Plan Problem List: (1) Schizophrenia ICD Code: F20.9 Assessment & Plan Estimated LOS: days Justification for Cont. Inpt. His current decompensation at a lower level of care Request HC Surrog/Guard Advoc?: No Problem Qualifiers (1) Schizophrenia: Qualified Code: F20.3 - Undifferentiated schizophrenia Claudy Reed MD Aug 06, 2016 12:03
[2016-08-06 19:47] VITALS: BP 102/56; PULSE 92; RESP 16; TEMP 98; O2SAT 96
[2016-08-06] MEDS: QUEtiapine FUMARATE 300 MG TAB PO SCH (20:21)
[2016-08-07 05:44] VITALS: BP 92/53; PULSE 72; RESP 16; TEMP 98.1; O2SAT 98
[2016-08-07] MEDS: QUEtiapine FUMARATE 25 MG TAB PO SCH ×2 (08:57→13:19)
[2016-08-07] MEDS: BENZTROPINE MESYLATE 1 MG TAB PO SCH ×2 (09:00→20:25)
--- NOTE | 2016-08-07 11:59 | HHI.PYPN ---
Subjective Remarks Patient was seen and discussed with the staff nurse. Reportedly patient becomes sometimes confused and paranoid. But no behavior or management problem reported. She tends to isolate herself and keeps to herself. Denies any suicidal ideation intentions or plan. Family member reportedly feels that she needs to be in the hospital to stabilize more before she can come home. Continue with the same treatment and adjust the medication. Review of Systems Except as stated in HPI: all other systems reviewed are Neg Psychiatric: COMPLAINS OF: Confusion, Mood changes, Depression, Hallucinations , Delusions Objective Alert: Yes [place]: Person, Place Mood: Anxious, Depressed Affect: Flat, Blunted Memory Intact: Comment (fair) Hallucinations: Auditory (occasional auditory hallucination) Delusions: Yes Delusion Type: Paranoid Suicidal: Ideation (denies) Homicidal: Ideation (denies) Insight/Judgement Limited Vitals/IOs Vital Signs Date Time Temp Pulse Resp B/P Pulse Ox O2 Delivery O2 Flow Rate FiO2 08/07/16 05:44 98.1 72 16 92/53 98 Assessment & Plan Problem List: (1) Schizophrenia ICD Code: F20.9 Assessment & Plan Estimated LOS: days Justification for Cont. Inpt. Risk of decompensation at a lower level of care needs monitoring of the medication Request HC Surrog/Guard Advoc?: No Problem Qualifiers (1) Schizophrenia: Qualified Code: F20.3 - Undifferentiated schizophrenia Claudy Reed MD Aug 07, 2016 11:59
[2016-08-07 18:55] VITALS: BP 137/76; PULSE 77; RESP 16; TEMP 98.3; O2SAT 98
[2016-08-07] MEDS: QUEtiapine FUMARATE 300 MG TAB PO SCH (20:26)
[2016-08-08 06:08] VITALS: BP 104/53; PULSE 75; RESP 18; TEMP 97.6
[2016-08-08] MEDS: BENZTROPINE MESYLATE 1 MG TAB PO SCH ×2 (09:01→20:27)
[2016-08-08] MEDS: QUEtiapine FUMARATE 25 MG TAB PO SCH ×2 (09:01→12:52)
--- NOTE | 2016-08-08 11:02 | HHI.PYPN ---
Subjective Remarks Patient was seen and discussed with the staff reporter. Patient claimed that she has been doing better and wants to go home. She denies categorically active auditory or visual hallucinations but sometimes it seems like she is internally preoccupied. No behavior or management problem reported. Family wants her to stay here a few more days to stabilize on the medication prior to coming home. Explained to the patient. No side effects were complained. Continue with the same treatment Review of Systems Except as stated in HPI: all other systems reviewed are Neg Psychiatric: COMPLAINS OF: Mood changes, Depression, Hallucinations Objective Alert: Yes [place]: Person, Place Mood: Anxious, Depressed Affect: Flat, Blunted Memory Intact: Comment (fair) Hallucinations: Auditory (occasional auditory hallucination) Delusions: Yes Delusion Type: Paranoid Suicidal: Ideation (denies) Homicidal: Ideation (denies) Insight/Judgement Limited Vitals/IOs Vital Signs Date Time Temp Pulse Resp B/P Pulse Ox O2 Delivery O2 Flow Rate FiO2 08/08/16 06:08 97.6 75 18 104/53 08/07/16 18:55 98 Assessment & Plan Problem List: (1) Schizophrenia ICD Code: F20.9 Assessment & Plan Estimated LOS: days Justification for Cont. Inpt. Risk of decompensation and needs monitoring of the medication Request HC Surrog/Guard Advoc?: No Problem Qualifiers (1) Schizophrenia: Qualified Code: F20.3 - Undifferentiated schizophrenia Claudy Reed MD Aug 08, 2016 11:02
[2016-08-08 19:23] VITALS: BP 110/75; PULSE 90; RESP 18; TEMP 97.9; O2SAT 96
[2016-08-08] MEDS: QUEtiapine FUMARATE 300 MG TAB PO SCH (20:27)
[2016-08-09 06:25] VITALS: BP 93/51; PULSE 73; RESP 18; TEMP 97.3
[2016-08-09] MEDS: BENZTROPINE MESYLATE 1 MG TAB PO SCH ×2 (08:59→20:50)
[2016-08-09] MEDS: QUEtiapine FUMARATE 25 MG TAB PO SCH ×2 (08:59→12:46)
--- NOTE | 2016-08-09 11:32 | HHI.PYPN ---
Subjective Remarks Patient was seen and discussed with the rn staff. Patient claimed that she wants to go home soon. We'll check with her brother and see if that's possible. Because in the past brother wanted her to stay here longer and be stable prior to her coming home. No behavior or management problem reported here. Patient is compliant in taking medication. No side effects were complained. Patient denied any suicidal ideation intentions or plan. Continue the same treatment. [employer] social media project manager to look into aftercare and discharge planning Review of Systems Except as stated in HPI: all other systems reviewed are Neg Psychiatric: COMPLAINS OF: Mood changes, Depression Objective Alert: Yes [place]: Person, Place Mood: Anxious, Depressed Affect: Flat, Blunted Memory Intact: Comment (fair) Hallucinations: Auditory (occasional auditory hallucination) Delusions: Yes Delusion Type: Paranoid Suicidal: Ideation (denies) Homicidal: Ideation (denies) Insight/Judgement Limited to fair Vitals/IOs Vital Signs Date Time Temp Pulse Resp B/P Pulse Ox O2 Delivery O2 Flow Rate FiO2 08/09/16 06:25 97.3 73 18 93/51 08/08/16 19:23 96 Assessment & Plan Problem List: (1) Schizophrenia ICD Code: F20.9 Assessment & Plan Estimated LOS: days Justification for Cont. Inpt. Risk of decompensation at a lower level of care Request HC Surrog/Guard Advoc?: No Problem Qualifiers (1) Schizophrenia: Qualified Code: F20.3 - Undifferentiated schizophrenia Claudy Reed MD Aug 09, 2016 11:32
[2016-08-09 19:54] VITALS: BP 105/55; PULSE 85; RESP 18; TEMP 98; O2SAT 100
[2016-08-09] MEDS: QUEtiapine FUMARATE 200 MG TAB PO SCH (20:50)
[2016-08-10 05:46] VITALS: BP 98/60; PULSE 107; RESP 16; TEMP 97.8
[2016-08-10] MEDS: BENZTROPINE MESYLATE 1 MG TAB PO SCH ×2 (09:01→22:19)
[2016-08-10] MEDS: QUEtiapine FUMARATE 25 MG TAB PO SCH ×2 (09:01→12:02)
[2016-08-10] MEDS: ACETAMINOPHEN 325 MG TAB PO PRN (09:11)
--- NOTE | 2016-08-10 14:56 | HHI.PYPN ---
Subjective Remarks Patient was seen and case discussed with nursing. Per nursing patient is seclusive to room. Patient is flat and hypoverbal. Auditory hallucinations are "sometimes." Patient is vague throughout the interview. Mood is "uneasy." Compliant with medications Objective Alert: Yes [place]: Person, Place Mood: Anxious, Depressed Affect: Flat, Blunted Memory Intact: Comment (fair) Hallucinations: Auditory (occasional auditory hallucination) Delusions: Yes Delusion Type: Paranoid Suicidal: Ideation (denies) Homicidal: Ideation (denies) Insight/Judgement Poor Vitals/IOs Vital Signs Date Time Temp Pulse Resp B/P Pulse Ox O2 Delivery O2 Flow Rate FiO2 08/10/16 05:46 97.8 107 16 98/60 08/09/16 19:54 100 Assessment & Plan Problem List: (1) Schizophrenia ICD Code: F20.9 Assessment & Plan Continue current treatment plan Justification for Cont. Inpt. Patient would decompensate in a less restrictive setting Request HC Surrog/Guard Advoc?: No Problem Qualifiers (1) Schizophrenia: Qualified Code: F20.3 - Undifferentiated schizophrenia Aureliano Ruby DO Aug 10, 2016 14:56
[2016-08-10 19:14] VITALS: BP 117/56; PULSE 73; RESP 18; O2SAT 97
[2016-08-10 20:20] VITALS: BP 117/73; PULSE 72; O2SAT 97
[2016-08-10] MEDS: hydrOXYzine HCL 50 MG TAB PO PRN (22:19)
[2016-08-10] MEDS: QUEtiapine FUMARATE 200 MG TAB PO SCH (22:20)
[2016-08-11 05:05] VITALS: BP 99/53; PULSE 65; RESP 18; O2SAT 98
[2016-08-11] MEDS: BENZTROPINE MESYLATE 1 MG TAB PO SCH ×2 (09:25→20:45)
[2016-08-11] MEDS: QUEtiapine FUMARATE 25 MG TAB PO SCH ×2 (09:25→12:12)
--- NOTE | 2016-08-11 14:08 | HHI.PYPN ---
Subjective Remarks Patient was seen and case discussed with nursing. Patient is flat and guarded. There is some evidence of thought blocking and she could be responding to internal stimuli. She asked within the interview early go back to her room. Compliant with the medications. Behaving well on the unit. Objective Alert: Yes [place]: Person, Place Mood: Anxious, Depressed Affect: Flat, Blunted Memory Intact: Comment (fair) Hallucinations: Auditory (occasional auditory hallucination) Delusions: Yes Delusion Type: Paranoid Suicidal: Ideation (denies) Homicidal: Ideation (denies) Insight/Judgement Poor Vitals/IOs Vital Signs Date Time Temp Pulse Resp B/P Pulse Ox O2 Delivery O2 Flow Rate FiO2 08/11/16 05:05 65 18 99/53 98 08/10/16 05:46 97.8 Assessment & Plan Problem List: (1) Schizophrenia ICD Code: F20.9 Assessment & Plan Continue current treatment plan Justification for Cont. Inpt. Patient would decompensate in a less restrictive setting Request HC Surrog/Guard Advoc?: No Problem Qualifiers (1) Schizophrenia: Qualified Code: F20.3 - Undifferentiated schizophrenia Aureliano Ruby DO Aug 11, 2016 14:08
[2016-08-11 18:57] VITALS: BP 119/68; PULSE 80; RESP 18; O2SAT 97
[2016-08-11] MEDS: QUEtiapine FUMARATE 200 MG TAB PO SCH (20:45)
[2016-08-12 06:51] VITALS: BP 89/60; PULSE 70; RESP 18; TEMP 97.5; O2SAT 96
[2016-08-12] MEDS: QUEtiapine FUMARATE 25 MG TAB PO SCH ×2 (08:35→12:00)
[2016-08-12] MEDS: BENZTROPINE MESYLATE 1 MG TAB PO SCH (08:35)
--- NOTE | 2016-08-12 12:53 | HHI.PYPN ---
Subjective Remarks She was seen and case discussed with nursing. Patient describes mood as tired. She remains largely seclusive to room. Vital signs repeated and were 118/83. She denies suicidal ideations thought or plan. Affect is blunted and preoccupied. Patient has very mild perioral movements which appear and disappear throughout the interview. It is unclear if this is EPS. No tremors, akathisia, dystonia noted. Denies auditory visual hallucinations. Patient is also losing her hair and hair appears to be shedding. Patient denies pulling on it but this cannot be confirmed Objective Alert: Yes [place]: Person, Place Mood: Anxious, Depressed Affect: Flat, Blunted Memory Intact: Comment (fair) Hallucinations: Auditory (occasional auditory hallucination) Delusions: Yes Delusion Type: Paranoid Suicidal: Ideation (denies) Homicidal: Ideation (denies) Insight/Judgement Poor Vitals/IOs Vital Signs Date Time Temp Pulse Resp B/P Pulse Ox O2 Delivery O2 Flow Rate FiO2 08/12/16 06:51 97.5 70 18 89/60 96 Assessment & Plan Problem List: (1) Schizophrenia ICD Code: F20.9 Assessment & Plan We will increase her dose of Cogentin. Nursing will continue monitoring perioral movements. Treating provider tomorrow should consider lowering antipsychotic making a switch. Vital signs were low one time this morning and we'll get every 6 hours Justification for Cont. Inpt. Patient will decompensate in a less restrictive setting Request HC Surrog/Guard Advoc?: No Problem Qualifiers (1) Schizophrenia: Qualified Code: F20.3 - Undifferentiated schizophrenia Aureliano Ruby DO Aug 12, 2016 12:53
[2016-08-12] MEDS: BENZTROPINE MESYLATE 2 MG TAB PO SCH ×2 (14:26→21:29)
[2016-08-12 19:22] VITALS: BP 119/65; PULSE 77; RESP 17; TEMP 97.4; O2SAT 97
[2016-08-12] MEDS: QUEtiapine FUMARATE 200 MG TAB PO SCH (21:29)
[2016-08-13 04:50] VITALS: BP 102/59; PULSE 72; RESP 16; TEMP 97.8; O2SAT 100
[2016-08-13 05:32] VITALS: BP 102/59; PULSE 72; RESP 16; TEMP 97.8; O2SAT 100
[2016-08-13] MEDS: BENZTROPINE MESYLATE 2 MG TAB PO SCH ×2 (10:29→20:25)
[2016-08-13] MEDS: QUEtiapine FUMARATE 25 MG TAB PO SCH ×2 (10:29→12:45)
--- NOTE | 2016-08-13 11:58 | HHI.PYPN ---
Subjective Remarks Patient was seen and discussed with the operations staff specialist security. Patient wants to go home but her family her brother's concern about patient's condition he wants to come for the treatment team tomorrow and will discuss in detail about her condition. Patient claimed that she does not hear any voices. She does not want to hurt herself. She is willing to take the medication and follow-up as an outpatient. No side effects were complained. No behavior or management problem reported. Continue with the same treatment Review of Systems Except as stated in HPI: all other systems reviewed are Neg Psychiatric: COMPLAINS OF: Anxiety, Mood changes, Depression Objective Alert: Yes [place]: Person, Place Mood: Anxious, Depressed Affect: Flat, Blunted Memory Intact: Comment (fair) Hallucinations: Auditory (occasional auditory hallucination but patient denied any active auditory hallucination today) Delusions: Yes Delusion Type: Paranoid Suicidal: Ideation (denies) Homicidal: Ideation (denies) Insight/Judgement Limited Vitals/IOs Vital Signs Date Time Temp Pulse Resp B/P Pulse Ox O2 Delivery O2 Flow Rate FiO2 08/13/16 05:32 97.8 72 16 102/59 100 Assessment & Plan Problem List: (1) Schizophrenia ICD Code: F20.9 Assessment & Plan Estimated LOS: days Justification for Cont. Inpt. Risk of decompensation at a lower level of care Request HC Surrog/Guard Advoc?: No Problem Qualifiers (1) Schizophrenia: Qualified Code: F20.3 - Undifferentiated schizophrenia Claudy Reed MD Aug 13, 2016 11:58
[2016-08-13] MEDS: ACETAMINOPHEN 325 MG TAB PO PRN (16:48)
[2016-08-13 20:00] VITALS: BP 112/71; PULSE 77; RESP 18; TEMP 97.9
[2016-08-13] MEDS: QUEtiapine FUMARATE 200 MG TAB PO SCH (20:27)
[2016-08-14 06:22] VITALS: BP 94/57; PULSE 64; RESP 18; TEMP 98.3; O2SAT 97
[2016-08-14] MEDS: BENZTROPINE MESYLATE 2 MG TAB PO SCH ×2 (08:44→21:14)
[2016-08-14] MEDS: QUEtiapine FUMARATE 25 MG TAB PO SCH ×2 (08:44→11:16)
--- NOTE | 2016-08-14 13:42 | HHI.PYPN ---
Subjective Remarks Patient was seen and discussed with the medical staff specialist. Patient's brother was present during the treatment team. And reported that patient was functioning better than what she is now when she used to take the medication. But because of the history of noncompliance and decompensating we discussed the possibility of putting her on IM long-acting medication. In the past patient has done fairly well on Haldol. We will switch patient on the IM Haldol and see how she does patient is agreed to stay here for monitoring of the medication. No behavior or management problem reported. Denied any suicidal ideation intentions or plan. No side effects were complained. Continue with the same treatment Review of Systems Except as stated in HPI: all other systems reviewed are Neg Psychiatric: COMPLAINS OF: Mood changes, Depression, Delusions Objective Alert: Yes [place]: Person, Place Mood: Anxious, Depressed Affect: Flat, Blunted Memory Intact: Comment (fair) Hallucinations: Auditory (occasional auditory hallucination but patient denied any active auditory hallucination today) Delusions: Yes Delusion Type: Paranoid Suicidal: Ideation (denies) Homicidal: Ideation (denies) Insight/Judgement Limited Vitals/IOs Vital Signs Date Time Temp Pulse Resp B/P Pulse Ox O2 Delivery O2 Flow Rate FiO2 08/14/16 06:22 98.3 64 18 94/57 97 Assessment & Plan Problem List: (1) Schizophrenia ICD Code: F20.9 Assessment & Plan Estimated LOS: days Justification for Cont. Inpt. Risk of decompensation at a lower level of care Request HC Surrog/Guard Advoc?: No Problem Qualifiers (1) Schizophrenia: Qualified Code: F20.3 - Undifferentiated schizophrenia Claudy Reed MD Aug 14, 2016 13:42
[2016-08-14] MEDS ORDERED: HALOPERIDOL DECANOATE 50 MG/ML VIAL IM SCH (15:00)
[2016-08-14 18:00] VITALS: BP 123/63; PULSE 90; RESP 18; TEMP 97.6; O2SAT 96
[2016-08-14 20:36] VITALS: BP 113/63; PULSE 90; RESP 18
[2016-08-14] MEDS: HALOPERIDOL 5 MG TAB PO SCH (21:14)
[2016-08-15 06:08] VITALS: BP 131/62; PULSE 81; RESP 16; TEMP 97.8
[2016-08-15] MEDS: CITALOPRAM HYDROBROMIDE 20 MG TAB PO SCH (09:01)
[2016-08-15] MEDS: BENZTROPINE MESYLATE 2 MG TAB PO SCH ×2 (09:01→21:00)
--- NOTE | 2016-08-15 11:44 | HHI.PYPN ---
Subjective Remarks Patient was seen and discussed with the staff home therapy rn. Patient reported that she received her shot. No side effects were complained. She slept fairly well. No behavior or management problem reported. She was encouraged to participate in all the therapeutic activity on the floor. Patient still wants to go home soon. Continue with the same treatment Review of Systems Except as stated in HPI: all other systems reviewed are Neg Psychiatric: COMPLAINS OF: Mood changes, Depression, Hallucinations Objective Alert: Yes [place]: Person, Place Mood: Anxious, Depressed Affect: Flat, Blunted Memory Intact: Comment (fair) Hallucinations: Auditory (occasional auditory hallucination but patient denied any active auditory hallucination today) Delusions: Yes Delusion Type: Paranoid Suicidal: Ideation (denies) Homicidal: Ideation (denies) Insight/Judgement Limited Vitals/IOs Vital Signs Date Time Temp Pulse Resp B/P Pulse Ox O2 Delivery O2 Flow Rate FiO2 08/15/16 06:08 97.8 81 16 131/62 08/14/16 18:00 96 Assessment & Plan Problem List: (1) Schizophrenia ICD Code: F20.9 Assessment & Plan Estimated LOS: days Justification for Cont. Inpt. Monitoring of the medication and stabilizing her mood Request HC Surrog/Guard Advoc?: No Problem Qualifiers (1) Schizophrenia: Qualified Code: F20.3 - Undifferentiated schizophrenia Claudy Reed MD Aug 15, 2016 11:44
[2016-08-15 18:00] VITALS: BP 141/89; PULSE 96; RESP 18; TEMP 97.1; O2SAT 100
[2016-08-15] MEDS: HALOPERIDOL 5 MG TAB PO SCH (21:00)
[2016-08-16 05:51] VITALS: BP 96/53; PULSE 73; RESP 17; TEMP 98.9; O2SAT 96
[2016-08-16] MEDS: CITALOPRAM HYDROBROMIDE 20 MG TAB PO SCH (08:40)
[2016-08-16] MEDS: BENZTROPINE MESYLATE 2 MG TAB PO SCH ×2 (08:40→21:17)
--- NOTE | 2016-08-16 11:49 | HHI.PYPN ---
Subjective Remarks Patient was seen and discussed with the staff editor. Patient claimed that she has been feeling much better. She is more positive. verbal, no behavior or management problem reported. More cooperative and out of her room. No side effects were complained. Compliant in taking medication. Continue with the same treatment Review of Systems Except as stated in HPI: all other systems reviewed are Neg Psychiatric: COMPLAINS OF: Mood changes Objective Alert: Yes [place]: Person, Place Mood: Anxious, Depressed Affect: Flat, Blunted Memory Intact: Comment (fair) Hallucinations: Auditory (occasional auditory hallucination but patient denied any active auditory hallucination today) Delusions: Yes Delusion Type: Paranoid (patient is less paranoid) Suicidal: Ideation (denies) Homicidal: Ideation (denies) Insight/Judgement Improving Vitals/IOs Vital Signs Date Time Temp Pulse Resp B/P Pulse Ox O2 Delivery O2 Flow Rate FiO2 08/16/16 05:51 98.9 73 17 96/53 96 Intake and Output 08/15/16 08/15/16 08/16/16 08:00 16:00 00:00 Intake Total 240 ml Balance 240 ml Assessment & Plan Problem List: (1) Schizophrenia ICD Code: F20.9 Assessment & Plan Estimated LOS: days Justification for Cont. Inpt. Risk of decompensation at a lower level of care and monitoring of the medication Request HC Surrog/Guard Advoc?: No Problem Qualifiers (1) Schizophrenia: Qualified Code: F20.3 - Undifferentiated schizophrenia Claudy Reed MD Aug 16, 2016 11:49
[2016-08-16 19:01] VITALS: BP 112/59; PULSE 84; RESP 16; O2SAT 97
[2016-08-16] MEDS: HALOPERIDOL 5 MG TAB PO SCH (21:17)
[2016-08-17 05:42] VITALS: BP 139/73; PULSE 97; RESP 16; TEMP 97.8
[2016-08-17] MEDS: CITALOPRAM HYDROBROMIDE 20 MG TAB PO SCH (09:02)
[2016-08-17] MEDS: BENZTROPINE MESYLATE 2 MG TAB PO SCH ×2 (09:02→21:13)
[2016-08-17] MEDS: ACETAMINOPHEN 325 MG TAB PO PRN (11:44)
--- NOTE | 2016-08-17 18:18 | HHI.PYPN ---
Subjective Remarks Pt seen and discussed with staff. Pt reports that she is missing her tongue and believes that she may have swallowed it. When RN tells her that her tongue is in her mouth, pt seems surprised and says, "Wow. I thought it was gone." She is isolative and bizarre. Compliant with medications. No SI/HI. Objective Alert: Yes [place]: Person, Place Mood: Anxious, Depressed Affect: Flat, Blunted Memory Intact: Comment (fair) Hallucinations: Auditory (occasional auditory hallucination but patient denied any active auditory hallucination today) Delusions: Yes Delusion Type: Paranoid (patient is less paranoid) Suicidal: Ideation (denies) Homicidal: Ideation (denies) Insight/Judgement poor Vitals/IOs Vital Signs Date Time Temp Pulse Resp B/P Pulse Ox O2 Delivery O2 Flow Rate FiO2 08/17/16 05:42 97.8 97 16 139/73 08/16/16 19:01 97 Assessment & Plan Problem List: (1) Schizophrenia ICD Code: F20.9 Assessment & Plan Estimated LOS: days Justification for Cont. Inpt. impairments in self care and reality construction. Request HC Surrog/Guard Advoc?: No Problem Qualifiers (1) Schizophrenia: Qualified Code: F20.3 - Undifferentiated schizophrenia Dinora Martinez MD Aug 17, 2016 18:18
[2016-08-17] MEDS: HALOPERIDOL 5 MG TAB PO SCH (21:14)
[2016-08-17] MEDS: hydrOXYzine HCL 50 MG TAB PO PRN (21:14)
[2016-08-17 22:15] VITALS: BP 141/75; PULSE 16; RESP 16; TEMP 97.8; O2SAT 92
[2016-08-18 02:02] VITALS: BP 98/55; PULSE 72; RESP 18; TEMP 97.7; O2SAT 96
[2016-08-18 05:16] VITALS: BP 109/59; PULSE 77; RESP 18; TEMP 97.8; O2SAT 96
[2016-08-18] MEDS: BENZTROPINE MESYLATE 2 MG TAB PO SCH ×2 (09:30→20:08)
[2016-08-18] MEDS: CITALOPRAM HYDROBROMIDE 20 MG TAB PO SCH ×2 (09:30→09:31)
[2016-08-18] MEDS: ACETAMINOPHEN 325 MG TAB PO PRN (18:47)
[2016-08-18] MEDS: HALOPERIDOL 5 MG TAB PO SCH (20:08)
[2016-08-18] MEDS: hydrOXYzine HCL 50 MG TAB PO PRN (20:08)
--- NOTE | 2016-08-18 20:12 | HHI.PYPN ---
Subjective Remarks Pt seen and discussed with staff. She remains bizarre and paranoid. She has been isolative to her room today. No medication side effects. No SI/HI Objective Alert: Yes [place]: Person, Place Mood: Anxious, Depressed Affect: Flat, Blunted Memory Intact: Comment (fair) Hallucinations: Auditory (occasional auditory hallucination but patient denied any active auditory hallucination today) Delusions: Yes Delusion Type: Paranoid (patient is less paranoid) Suicidal: Ideation (denies) Homicidal: Ideation (denies) Insight/Judgement poor Vitals/IOs Vital Signs Date Time Temp Pulse Resp B/P Pulse Ox O2 Delivery O2 Flow Rate FiO2 08/18/16 05:16 97.8 77 18 109/59 96 Assessment & Plan Problem List: (1) Schizophrenia ICD Code: F20.9 Assessment & Plan Continue current tx plan,. Estimated LOS: days Justification for Cont. Inpt. impairments in reality construction, self care Request HC Surrog/Guard Advoc?: No Problem Qualifiers (1) Schizophrenia: Qualified Code: F20.3 - Undifferentiated schizophrenia Dinora Martinez MD Aug 18, 2016 20:12
[2016-08-18 20:26] LABS: BLOOD, URINE NEG (NEG); GLUCOSE,URINE NEG (NEG); KETONE, URINE TRACE mg/dL (NEG); NITRITE,URINE NEG (NEG); SQUAMOUS EPITHELIAL CELL URINE 1 /hpf (0-5); URINE COLOR LIGHT-YELLOW (YELLW/STRAW)
[2016-08-18 20:30] LABS: COMMENT (UR) CULT NOT INDICATED; CULTURE IF INDICATED CULT NOT INDICATED
[2016-08-18 21:20] VITALS: BP 110/62; PULSE 80; TEMP 97.8; O2SAT 98
[2016-08-19 05:28] VITALS: BP 103/59; PULSE 75; RESP 16; TEMP 98; O2SAT 94
[2016-08-19] MEDS: BENZTROPINE MESYLATE 2 MG TAB PO SCH ×2 (08:47→20:48)
[2016-08-19] MEDS: CITALOPRAM HYDROBROMIDE 20 MG TAB PO SCH (08:47)
--- NOTE | 2016-08-19 12:06 | HHI.PYPN ---
Subjective Remarks patient was seen and discussed with the event staff. Patient reported that she has been doing little better but over the weekend she was isolating herself in her room. Patient denied any active auditory or visual hallucinations. She is been sleeping fairly well. No behavior or management problem reported. Patient would like to go home soon. Continue with the same treatment. Review of Systems Except as stated in HPI: all other systems reviewed are Neg Psychiatric: COMPLAINS OF: Mood changes, Depression Objective Alert: Yes [place]: Person, Place Mood: Anxious, Depressed Affect: Flat, Blunted Memory Intact: Comment (fair) Hallucinations: Auditory (occasional auditory hallucination but patient denied any active auditory hallucination today) Delusions: Yes Delusion Type: Paranoid (patient is less paranoid) Suicidal: Ideation (denies) Homicidal: Ideation (denies) Insight/Judgement Limited Labs Test 08/18/16 19:00 Urine Color LIGHT-YELLOW Urine Turbidity CLEAR Urine pH 6.0 Urine Specific [place] 1.003 Urine Protein NEG mg/dL Urine Glucose (UA) NEG mg/dL Urine Ketones TRACE mg/dL Urine Occult Blood NEG Urine Nitrite NEG Urine Bilirubin NEG Urine Urobilinogen LESS THAN 2.0 MG/DL Urine Leukocyte Esterase NEG Urine RBC LESS THAN 1 /hpf Urine WBC 1 /hpf Urine Squamous Epithelial 1 /hpf Cells Microscopic Urinalysis Comment CULT NOT INDICATED Vitals/IOs Vital Signs Date Time Temp Pulse Resp B/P Pulse Ox O2 Delivery O2 Flow Rate FiO2 08/19/16 05:28 98.0 75 16 103/59 94 Assessment & Plan Problem List: (1) Schizophrenia ICD Code: F20.9 Assessment & Plan Estimated LOS: days Justification for Cont. Inpt. Monitoring of the medication and risk for decompensation Request HC Surrog/Guard Advoc?: No Problem Qualifiers (1) Schizophrenia: Qualified Code: F20.3 - Undifferentiated schizophrenia Claudy Reed MD Aug 19, 2016 12:06
[2016-08-19 19:00] VITALS: BP 121/66; PULSE 91; RESP 16; TEMP 97.4
[2016-08-19] MEDS: HALOPERIDOL 5 MG TAB PO SCH (20:48)
[2016-08-20 06:35] VITALS: BP 131/85; PULSE 68; RESP 18; TEMP 96.8
[2016-08-20] MEDS: BENZTROPINE MESYLATE 2 MG TAB PO SCH (09:07)
[2016-08-20] MEDS: CITALOPRAM HYDROBROMIDE 20 MG TAB PO SCH (09:07)
--- NOTE | 2016-08-20 11:07 | HHI.DS ---
Psychiatry Discharge Summary Inpatient Psychiatric care?: Yes Advance Directive: No Reason Not Provided: unavalible Mental Health AdvanceDirective: No Health Care Proxy: No Admission Admission Date Jul 24, 2016 at 11:55 Admission Diagnosis: (1) Schizophrenia ICD Code: F20.9 GAF Score: 45 Brief History Ms. Villarreal is a 55-year-old female with a history of schizophrenia who presented voluntarily to the emergency department with complaints of shortness of breath. Patient was evaluated by the ED provider and it was felt that patient's symptoms were chiefly psychiatric in origin. Patient was evaluated by psychiatric nurse practitioner recommended admission to the inpatient psychiatric unit. Patient is known to me from recent psychiatric admission in May. EMR reviewed. Patient seen and examined. Chart reviewed. Case discussed with nursing staff who notes that the patient was quite malodorous and disheveled on arrival here. She also notes that the patient had the supply of Seroquel that had been provided to her on discharge from the hospital unopened in a sealed paper bag. On my examination today, the patient has some degree of behavioral disorganization and disinhibition, belching repeatedly throughout the examination. She says that she has come into the hospital because "I had an episode." She reports that she has been adherent with her psychotropic medications, but this seems questionable given the information from nursing staff noted above. She has some degree of thought disorder with thought blocking. She denies audiovisual hallucinations but is frankly responding to internal stimuli, and when I note this to her she does agree that she is in fact experiencing AVH. Her mood is good and her sleep and appetite are fair. She denies any suicidal or homicidal thoughts. The remainder of the psychiatric ROS is negative. Past psychiatric history: Patient is likely an unreliable historian in her present state. Please see previous history and physical examination. Patient does maintain that she has been following up psychiatrically on an outpatient basis. She denies any interval psychiatric admissions or suicide attempts. Tobacco Use In Past 30 Days: No Tobacco Past 30 Days Alcohol Use: Never Hospital Course Patient was started on supportive treatment. She persevered in all the therapeutic activity on the floor. Her medication was adjusted. Later on it was switched to IM because of her history of noncompliance. And patient started to feel better became more in touch with reality. Denied any suicidal ideation intentions or plan. Denied any active auditory or visual hallucinations. Was willing to take the medication and follow-up as an outpatient at that point arrangements were made for her to be discharged Results Blood Pressure 131 / 85 Vital Signs Date Time Temp Pulse Resp B/P Pulse Ox O2 Delivery O2 Flow Rate FiO2 08/20/16 06:35 96.8 68 18 131/85 08/19/16 05:28 94 Laboratory Tests Test 08/18/16 19:00 Urine Ketones TRACE mg/dL (NEG) Summary of Major Lab Results Nothing significant Summary of Procedures None Imaging Last Impressions Gall Bladder Ultrasound 07/23/16 1212 Signed Impressions: Service Date/Time: Saturday, July 23, 2016 13:18 - CONCLUSION: Normal examination. Pancreas not visualized due to overlying bowel gas Bishop Roca MD Chest X-Ray 07/23/16 1018 Signed Impressions: Service Date/Time: Saturday, July 23, 2016 10:15 - CONCLUSION: Normal examination. Bishop Roca MD Pending results at discharge: No Medications # of Antipsychotic meds at D/C: 1 Appropriate >1 Antipsych meds?: 2 Approp Antipsych med options 1 - Minimum of three failed multiple trials of monotherapy. Discharge Discharge Date: Aug 20, 2016 Discharge Diagnosis: (1) Schizophrenia Diagnosis: Principal ICD Code: F20.9 Mental Status Exam at Disch Patient was alert oriented 3 cooperative casually dressed her speech was slow without any evidence of loose associations. No behavior or management problem reported. Denied any suicidal ideation intentions or plan. Denied any auditory or visual hallucinations. Willing to take the medication and follow- up as an outpatient Pt Condition on Discharge: Stable Discharge Disposition: Discharge Home Discharge Instructions Diet Instructions: As Tolerated, No Restrictions Activities you can perform: Regular-No Restrictions Scheduled Appointment: Avi Perdomo Appointment Date: Aug 23, 2016 Appointment Time: 7:30am Discharge Time <= 30 minutes Discharge/Advance Care Plan Health Problems: (1) Schizophrenia Goals to promote your health * To prevent worsening of your condition and complications * To maintain your health at the optimal level Directions to meet your goals Take your medications as prescribed Follow your dietary instruction Follow activity as directed Keep your appointments as scheduled Take your immunizations and boosters as scheduled If your symptoms worsen call your PCP, if no PCP go to Urgent Care Center or Emergency Room For 24/7 questions related to your inpatient stay or results of tests pending at discharge, please contact Dr. Claudy Reed at Smoking is Dangerous to Your Health. Avoid second hand smoking Problem Qualifiers (1) Schizophrenia: Qualified Code: F20.3 - Undifferentiated schizophrenia Claudy Reed MD Aug 20, 2016 11:07
[2016-08-20] MEDS ORDERED: HALO5TAB PO (11:09)
[2016-08-20] MEDS ORDERED: CELE20TA PO (11:09)
[2016-08-20] MEDS ORDERED: HALD50IN IM (11:09)
== END 2016-08-20 17:35 | disposition home or self-care (01) | DRG 885 ==
LOC: NEPC 09:48 → NEDA 07-24 11:55 → H260 07-24 13:25
PROVIDERS: ADMIT Psychiatry & Neurology Psychiatry; ATTEND Psychiatry & Neurology Psychiatry
DX: F20.3 Undifferentiated schizophrenia (principal); Z91.14 Patient's other noncompliance with medication regimen; F31.9 Bipolar disorder, unspecified; F41.9 Anxiety disorder, unspecified; Z60.2 Problems related to living alone; I25.2 Old myocardial infarction; R06.02 Shortness of breath; Z91.19 Patient's noncompliance with other medical treatment and regimen
CPT/HCPCS: 71010; 76705; 80053; 80061; 80076; 80301; 81001; 83036; 85025; 93005; G0479; J1631

== ENCOUNTER 2018-04-01 18:02 | Inpatient (IN) ==
[2018-04-01] MEDS ORDERED: Morphine Inj 4 MG/ML Vial IV.PUSH ONE (21:14)
[2018-04-01] MEDS ORDERED: Sod Chloride 0.9% Inj 1,000 ML IV.SIG ONE (21:14)
--- NOTE | 2018-04-01 21:19 | ED ---
HPI General Chief Complaint: Abdominal Pain Stated Complaint: Abd Pain Time Seen by Provider: 04/01/18 21:14 Source: patient Mode of arrival: ambulatory Limitations: no limitations History of Present Illness HPI narrative: 57-year-old female patient with history of HI presents to the ER today with 2 days history of right upper quadrant abdominal pains. She has had some nausea and vomiting although not in the last 2 days. She states that her pain is currently an 8 out of 10. She does not know of any exacerbating or alleviating factors. She denies any fevers or diarrhea. Related Data Home Medications Medication Instructions Recorded Confirmed citalopram [Celexa] 20 mg PO DAILY 04/01/18 04/01/18 rosuvastatin [Crestor] 20 mg PO DAILY 04/01/18 04/01/18 Allergies Allergy/AdvReac Type Severity Reaction Status Date / Time Sulfa (Sulfonamide Allergy Severe Rash Verified 04/01/18 21:58 Antibiotics) Review of Systems ROS: all other systems reviewed are negative [facility] Medical History Medical History High cholesterol (Acute) Surgical History Surgical History No history of previous surgery (Acute) Social History Social History Substance History: No History of Abuse Smoking Status: Current every day smoker Tobacco Type: Cigarettes How Often Do You Have a Drink Containing Alcohol: Monthly or less Recent Travel in [facility] within the Last 8 Weeks: No Recent Out of Country Travel within the Last 8 Weeks: No Immunization History Tetanus Immunization: >5 Years Hx Influenza Vaccine This Season: Yes Exam Narrative Exam Narrative: GENERAL: Well-developed middle-age female patient currently in moderate distress. Awake and oriented 3. SKIN: Focused skin assessment warm/dry. HEAD: Atraumatic. Normocephalic. EYES: Pupils equal and round. No scleral icterus. No injection or drainage. ENT: No nasal bleeding or discharge. Mucous membranes pink and moist. NECK: Trachea midline. No JVD. Supple. CARDIOVASCULAR: Regular rate and rhythm. No murmur appreciated. RESPIRATORY: No accessory muscle use. Clear to auscultation. Breath sounds equal bilaterally. GASTROINTESTINAL: Abdomen soft, right upper quadrant and epigastric tenderness without guarding rebound, nondistended. Hepatic and splenic margins not palpable. MUSCULOSKELETAL: No obvious deformities. No clubbing. No cyanosis. No edema. NEUROLOGICAL: Awake and alert. No obvious cranial nerve deficits. Motor grossly within normal limits. Normal speech. PSYCHIATRIC: Appropriate mood and affect; insight and judgment normal. Course Initial Documented Vital Signs Temperature 98.7 F 04/01/18 19:37 Pulse Rate 90 04/01/18 19:37 Respiratory Rate 16 04/01/18 19:37 Blood Pressure 139/77 04/01/18 19:37 Pulse Oximetry 95 04/01/18 19:37 Last Documented Vital Signs Temperature 98.7 F 04/01/18 19:37 Pulse Rate 70 04/01/18 23:45 Respiratory Rate 16 04/01/18 23:45 Blood Pressure 109/61 04/01/18 23:45 Pulse Oximetry 94 L 04/01/18 23:45 Medical Decision Making MDM Narrative Medical decision making narrative: Lab work was fairly unremarkable. Her CAT scan is showing inflammation of the omentum around the gallbladder, there is also a stone at the gallbladder neck, and at this point, ultrasound was ordered for further evaluation of the gallbladder. My plan would be to admit the patient for further evaluation of the gallbladder as well as this omental inflammation, questionable for ischemia as well. Case is discussed with Dr. Chacon for admission. Medical Screen Exam Complete: Yes Emergency Medical Condition: Yes Differential Diagnosis Differential Diagnosis: Cholecystitis versus pancreatitis versus gastroenteritis versus other acute intra-abdominal processes Lab Data Lab results reviewed: Yes I reviewed the patient's lab results. Result diagrams: 04/01/18 21:30 04/01/18 21:30 Lab Results 04/01/18 04/01/18 04/01/18 Range/Units 21:30 21:30 23:55 WBC 11.4 H (4.0-11.0) th/mm3 RBC 4.39 (4.00-5.30) mil/mm3 Hgb 13.1 (11.6-15.3) gm/dL Hct 39.8 (35.0-46.0) % MCV 90.7 (80.0-100.0) fL MCH 29.8 (27.0-34.0) pg MCHC 32.9 (32.0-36.0) % RDW 13.5 (11.6-17.2) % Plt Count 231 (150-450) th/mm3 MPV 8.3 (7.0-11.0) fL Neut % (Auto) 55.1 (16.0-70.0) % Lymph % (Auto) 36.6 (9.0-44.0) % [place] % (Auto) 6.8 (0.0-8.0) % Eos % (Auto) 1.1 (0.0-4.0) % Baso % (Auto) 0.4 (0.0-2.0) % Neut # (Auto) 6.3 (1.8-7.7) th/mm3 Lymph # (Auto) 4.2 (1.0-4.8) th/mm3 [place] # (Auto) 0.8 (0.0-0.9) th/mm3 Eos # (Auto) 0.1 (0.0-0.4) th/mm3 Baso # (Auto) 0.0 (0.0-0.2) th/mm3 WBC Differential . Differential Comment Auto diff final Sodium 142 (136-145) meq/L Potassium 4.0 (3.5-5.1) meq/L Chloride 105 (98-107) meq/L Carbon Dioxide 26.0 (21.0-32.0) meq/L Anion Gap 11 (5-15) meq/L BUN 9 (7-18) mg/dL Creatinine 0.88 (0.50-1.00) mg/dL Estimated GFR 67 L (>89) mL/min Random Glucose 84 (74-106) mg/dL Calcium 8.8 (8.5-10.1) mg/dL Total Bilirubin 0.3 (0.2-1.0) mg/dL AST 27 (15-37) U/L ALT 38 (10-53) U/L Alkaline Phosphatase 137 H (45-117) U/L Total Protein 7.6 (6.4-8.2) g/dL Albumin 3.6 (3.4-5.0) g/dL Lipase 113 (73-393) U/L Urine Color Yellow (Yellw/Straw) Urine Clarity Clear (Clear) Urine pH 5.0 (5.0-8.5) Ur Specific [place] 1.013 (1.002-1.035) Urine Protein Negative (Neg-Trace) mg/dL Urine Glucose (UA) Negative (Negative) mg/dL Urine Ketones Negative (Negative) mg/dL Urine Occult Blood Negative (Negative) Urine Nitrate Negative (Negative) Urine Bilirubin Negative (Negative) Urine Urobilinogen Less than 2 (Less than 2) mg/dL Ur Leukocyte Esterase Negative (Negative) Urine RBC Less than 1 (0-3) /hpf Urine WBC Less than 1 (0-5) /hpf Ur Squamous Epith Cells <1 (0-5) /hpf Urine Mucus Few H (Occasional) /lpf Micro UA Comment Culture not ind Ur Microscopic Review Not Reportable Urine Culture Comments Culture not ind Imaging Data Attestation: I personally reviewed and interpreted this imaging study as follows : Radiologist's impression: Abdomen/Pelvis CT 04/01/18 21:14 CONCLUSION: 1. There is focal inflammation within the fat in the right upper quadrant anterior to the liver and abutting the gallbladder fundus and transverse colon. Since the transverse colon does not appear abnormally top considerations include gallbladder inflammation or omental infarct. Given the location and lack of significant gallbladder distention or wall thickening, omental infarct is favored. 2. Questionable 2 mm stone in the gallbladder neck. Depending on the clinical symptoms along could consider gallbladder ultrasound or nuclear medicine hepatobiliary examination to evaluate for signs of cystic duct obstruction. Discharge Plan Discharge Disposition Patient Disposition: 30 Still Patient Discharge Condition Condition: Stable Discharge Details Anticipated Discharge Date: 04/02/18 Diagnosis: Cholecystitis Physicians Team ED Provider: Rodo Head Primary Care Provider: UNKNOWN, Attending Provider: Merry Chacon Other Providers: [facility],Insurance Discharge Interventions Interventions: Vital Signs Last Done: 04/01/18 23:45 Status ED Status: Admitted Patient
[2018-04-01 22:21] LABS: Baso % (Auto) 0.4 % (0.0-2.0); Eos # (Auto) 0.1 th/mm3 (0.0-0.4); Eos % (Auto) 1.1 % (0.0-4.0); Hematocrit 39.8 % (35.0-46.0); Hemoglobin 13.1 gm/dL (11.6-15.3); Lymph # (Auto) 4.2 th/mm3 (1.0-4.8); Lymph % (Auto) 36.6 % (9.0-44.0); Mean Corpuscular HGB Conc 32.9 % (32.0-36.0); Mean Corpuscular Hemoglobin 29.8 pg (27.0-34.0); Mean Corpuscular Volume 90.7 fL (80.0-100.0); Mean Platelet Volume 8.3 fL (7.0-11.0); Mono # (Auto) 0.8 th/mm3 (0.0-0.9); Mono % (Auto) 6.8 % (0.0-8.0); Neut # (Auto) 6.3 th/mm3 (1.8-7.7); Neut % (Auto) 55.1 % (16.0-70.0); Platelet Count 231 th/mm3 (150-450); Red Blood Count 4.39 mil/mm3 (4.00-5.30); Red Cell Distribution Width 13.5 % (11.6-17.2); White Blood Count 11.4 th/mm3 (4.0-11.0)
[2018-04-01 22:43] LABS: Alanine Aminotransferase 38 U/L (10-53); Albumin 3.6 g/dL (3.4-5.0); Anion Gap 11 meq/L (5-15); Aspartate Aminotransferase 27 U/L (15-37); Blood Urea Nitrogen 9 mg/dL (7-18); Calcium 8.8 mg/dL (8.5-10.1); Chloride 105 meq/L (98-107); Glomerular Filtration Rate 67 mL/min (>89); Glucose,Random 84 mg/dL (74-106); Lipase 113 U/L (73-393); Sodium 142 meq/L (136-145)
[2018-04-01 22:44] LABS: Alkaline Phosphatase 137 U/L (45-117); Total Protein 7.6 g/dL (6.4-8.2)
--- NOTE | 2018-04-02 | CT ---
EXAM DATE: 04/01/2018 11:48 PM EDT AGE/SEX: 57 years / Female INDICATIONS: Right upper quadrant pain. CLINICAL DATA: This is the patient's initial encounter. Patient reports that signs and symptoms have been present for 2 days and indicates a pain score of 8/10. MEDICAL/SURGICAL HISTORY: None. None. ORAL CONTRAST: No oral contrast ingested. RADIATION DOSE: 10.35 CTDI (mGy) COMPARISON: No prior exams available for comparison. TECHNIQUE: Multiple contiguous axial images were obtained through the abdomen and pelvis following b olus infusion of 75 ml Omnipaque 350 (iohexol) nonionic water-soluble contrast as a single exam dos e. No oral contrast ingested. Using automated exposure control and adjustment of the mA and/or kV ac cording to patient size, radiation dose was kept as low as reasonably achievable to obtain optimal di agnostic quality images. DICOM format image data is available electronically for review and comparis on. FINDINGS: Lower chest: There is atelectasis at both lung bases. Hepatobiliary: Liver appearance suggest steatosis. No focal liver lesion is identified. No definite c alcified gallstones are seen but there is a 2 mm calcification/density in the region of the gallbladd er neck or cystic duct . Gallbladder is not significantly distended and demonstrates no wall thickeni ng. There is inflammation in the fat adjacent to the gallbladder fundus and abutting the adjacent tra nsverse colon. Kidneys: No hydronephrosis, stone, or mass. Adrenal Glands: Within normal limits. Spleen: Within normal limits. Pancreas: Within normal limits. Vascular: The aorta is nonaneurysmal. There is moderate atherosclerotic disease. Bowel/Mesentery: The stomach and small bowel demonstrate no abnormality. No acute colon abnormality i s seen. There is no free intraperitoneal air or fluid. The inflammation in the right upper quadrant i s adjacent to the transverse colon but the transverse colon demonstrates no wall thickening and no di verticulum is seen. Abdominal Wall: No hernia is visualized. There is mild subcutaneous inflammation along the right flan k. Retroperitoneum: No lymphadenopathy. Bladder: No wall thickening or mass. Reproductive: Within normal limits. Inguinal: No lymphadenopathy or hernia. Musculoskeletal: No acute osseous abnormality is identified. CONCLUSION: 1. There is focal inflammation within the fat in the right upper quadrant anterior to the liver and abutting the gallbladder fundus and transverse colon. Since the transverse colon does not appear abno rmally top considerations include gallbladder inflammation or omental infarct. Given the location and lack of significant gallbladder distention or wall thickening, omental infarct is favored. 2. Questionable 2 mm stone in the gallbladder neck. Depending on the clinical symptoms along could c onsider gallbladder ultrasound or nuclear medicine hepatobiliary examination to evaluate for signs of cystic duct obstruction. Electronically signed by: Joseph Wallace MD 04/01/2018 11:59 PM EDT
[2018-04-02 00:38] LABS: Bilirubin,Urine Negative (Negative); Clarity,Urine Clear (Clear); Color,Urine Yellow (Yellw/Straw); Glucose,Urine (UA) Negative (Negative); Leukocyte Esterase,Urine Negative (Negative); Mucus,Urine Few /lpf (Occasional); Nitrite,Urine Negative (Negative); Specific Gravity,Urine 1.013 (1.002-1.035); Squamous Epithelial Cell,Urine <1 /hpf (0-5)
--- NOTE | 2018-04-02 02:42 | US ---
EXAM DATE: 04/02/2018 2:29 AM EDT AGE/SEX: 57 years / Female INDICATIONS: Right upper quadrant pain. CLINICAL DATA: This is the patient's initial encounter. Patient reports that signs and symptoms have been present for 2 days and indicates a pain score of 5/10. MEDICAL/SURGICAL HISTORY: Myocardial infarction. Hypercholesterolemia. Schizophrenia. Bipolar disorder. None. COMPARISON: [facility] [place], CT ABDOMEN & PELVIS W CONTRAST, 04/01/2018. . MEASUREMENTS: Liver:__ 17.2 cm. Common Bile Duct:__ 7mm. FINDINGS: Liver: Increased echotexture without focal lesion or ductal dilation. Portal Vein: Hepatopedal flow seen in portal vein. Common Duct: No intraluminal mass or stone visualized. Gallbladder: There is sludge within the gallbladder. No stone is visualized. No wall thickening or p ericholecystic fluid is present. Sonographic Stroud sign is absent. There is trace perihepatic free f luid in the area of inflammation identified on recent CT. Pancreas: Not well visualized. Right Kidney: Normal echotexture and cortical thickness. No mass or hydronephrosis. Other: . CONCLUSION: 1. Trace perihepatic free fluid in the area of inflammation identified on recent CT. Given the appea stephen on the current ultrasound I feel that it is unlikely that the CT findings are related to acute cholecystitis. The CT findings are most likely related to omental infarct. Suggest follow-up CT imagi ng to confirm resolution, if needed. 2. Gallbladder sludge. 3. Hepatic steatosis. Electronically signed by: Joseph Wallace MD 04/02/2018 2:41 AM EDT
[2018-04-02] MEDS ORDERED: Morphine Inj 4 MG/ML Vial IV.PUSH PRN ×2 (02:58→13:09)
[2018-04-02] MEDS ORDERED: Bisacodyl 10 MG Supp RECTAL PRN (03:01)
--- NOTE | 2018-04-02 03:12 | P.HP ---
History of Present Illness Service: [facility] Primary Care Physician: UNKNOWN History of Present Illness: 57-year-old female with past medical history significant for coronary artery disease and hyperlipidemia presents to the emergency department for the evaluation of 2 days of right upper quadrant pain. The patient endorses associated nausea and vomiting. No diarrhea. No hematemesis. She denies any fever/chills. No chest pain or shortness of breath. Inpatient Certification: I certify that the inpatient services were ordered in accordance with Medicare regulations governing the order. This includes certification that hospital inpatient services are reasonable and necessary and in the case of services not specified as inpatient-only under 42 CFR 419.22(n), that they are appropriately provided as inpatient services in accordance to with the 2-midnight benchmark under 43 CFR 412.3(e) Review of Systems All other systems reviewed negative except as stated in [facility] - History History Provided By: Patient - Medical History Medical History: Medical History (Last Updated 04/02/18 @ 03:06 by Merry Chacon MD) Coronary artery disease High cholesterol - Surgical History Surgical History: Surgical History (Last Reviewed 04/01/18 @ 21:18 by Rodo Head MD) No history of previous surgery - Family History Family History: Family History (Last Updated 04/02/18 @ 03:06 by Merry Chacon MD) Other Family history normal - Tobacco History Tobacco Use In Past 30 Days: Yes Smoking Status: Current every day smoker Tobacco Type: Cigarettes - Alcohol History How Often Do You Have a Drink Containing Alcohol: Monthly or less - Substance Use History Substance History: No History of Abuse - Travel History Recent Travel in the [place] Within the Last 8 Weeks: No Recent Travel Out of the Country Within the Last 8 Weeks: No - Immunization History Tetanus Immunization: >5 Years Hx Influenza Vaccine This Season: Yes Medications and Allergies Active Medications: Active Medications Al Hydroxide/Mg Hydroxide (Milk Of Magnesia Liq) 30 ml PO Q12H PRN PRN Reason: Mild Constipation Bisacodyl (Dulcolax Supp) 10 mg RECTAL DAILY PRN PRN Reason: SEVERE CONSITIPATION Sodium Chloride (Ns Inj) 1,000 mls @ 100 mls/hr IV.CONT .Q10H ALICIA Lactulose (Lactulose Liq) 30 ml PO DAILY PRN PRN Reason: SEVERE CONSITIPATION Morphine Sulfate (Morphine Inj) 2 mg IV.PUSH Q4H PRN PRN Reason: pain 6-10 Ondansetron HCl (Zofran Inj) 4 mg IV.PUSH Q6H PRN PRN Reason: NAUSEA OR VOMITING Senna/Docusate Sodium (Elsa-Colace) 1 tab PO BID ALICIA Sennosides (Senokot) 17.2 mg PO Q12H PRN PRN Reason: Moderate Constipation Sodium Chloride (Ns Flush) 2 ml IV.FLUSH PRN PRN PRN Reason: FLUSH AFTER USING IV ACCESS Last Admin: 04/01/18 21:32 Dose: 2 ml Allergies Allergy/AdvReac Type Severity Reaction Status Date / Time Sulfa (Sulfonamide Allergy Severe Rash Verified 04/01/18 21:58 Antibiotics) Home Medications Medication Instructions Recorded Confirmed Type citalopram [Celexa] 20 mg PO DAILY 04/01/18 04/01/18 History rosuvastatin [Crestor] 20 mg PO DAILY 04/01/18 04/01/18 History Exam Vital signs: Vital Signs 04/01/18 19:37 04/01/18 21:37 04/01/18 23:21 Temperature 98.7 F Pulse Rate 90 81 76 Respiratory Rate 16 16 16 Blood Pressure 139/77 128/66 103/50 L Pulse Oximetry 95 95 95 04/01/18 23:45 Temperature Pulse Rate 70 Respiratory Rate 16 Blood Pressure 109/61 Pulse Oximetry 94 L Intake & Output 04/01/18 04/01/18 04/02/18 06:59 18:59 06:59 Intake Total 1000 / 1000 Balance 1000 / 1000 Weight 85 kg Intake: IV 1000 / 1000 NS Inj 1,000 ML @ Wide Open IV. 1000 / 1000 SIG BOLUS ONE Rx#:[id number] Narrative: Gen.: No acute distress Head: Normocephalic. Atraumatic. EENT: Pupils equal round and reactive to light. Nose without drainage. Airway intact. Throat without injection. Cardiovascular: Regular rate and rhythm. No murmurs, rubs or gallops. Respiratory: Lungs clear to auscultation bilaterally. No wheezes or rhonchi. Abdomen: Soft, exquisitely tender to palpation in the right upper quadrant, nondistended. No peritoneal signs. Positive Stroud's sign. Musculoskeletal: No gross deformities. No edema. Skin: No obvious rashes or erythema. Neuro: Sensory and motor grossly intact. Cranial nerves II through XII grossly intact. Results - Labs CBC & Chem 7: 04/01/18 21:30 04/01/18 21:30 Labs: Laboratory Results - last 24 hr 04/01/18 04/01/18 04/01/18 21:30 21:30 23:55 WBC 11.4 H RBC 4.39 Hgb 13.1 Hct 39.8 MCV 90.7 MCH 29.8 MCHC 32.9 RDW 13.5 Plt Count 231 MPV 8.3 Neut % (Auto) 55.1 Lymph % (Auto) 36.6 [place] % (Auto) 6.8 Eos % (Auto) 1.1 Baso % (Auto) 0.4 Neut # (Auto) 6.3 Lymph # (Auto) 4.2 [place] # (Auto) 0.8 Eos # (Auto) 0.1 Baso # (Auto) 0.0 WBC Differential . Differential Comment Auto diff final Sodium 142 Potassium 4.0 Chloride 105 Carbon Dioxide 26.0 Anion Gap 11 BUN 9 Creatinine 0.88 Estimated GFR 67 L Random Glucose 84 Calcium 8.8 Total Bilirubin 0.3 AST 27 ALT 38 Alkaline Phosphatase 137 H Total Protein 7.6 Albumin 3.6 Lipase 113 Urine Color Yellow Urine Clarity Clear Urine pH 5.0 Ur Specific [place] 1.013 Urine Protein Negative Urine Glucose (UA) Negative Urine Ketones Negative Urine Occult Blood Negative Urine Nitrate Negative Urine Bilirubin Negative Urine Urobilinogen Less than 2 Ur Leukocyte Esterase Negative Urine RBC Less than 1 Urine WBC Less than 1 Ur Squamous Epith Cells <1 Urine Mucus Few H Micro UA Comment Culture not ind Ur Microscopic Review Not Reportable Urine Culture Comments Culture not ind - Imaging Impressions Abdomen/Pelvis CT 04/01/18 21:14 CONCLUSION: 1. There is focal inflammation within the fat in the right upper quadrant anterior to the liver and abutting the gallbladder fundus and transverse colon. Since the transverse colon does not appear abnormally top considerations include gallbladder inflammation or omental infarct. Given the location and lack of significant gallbladder distention or wall thickening, omental infarct is favored. 2. Questionable 2 mm stone in the gallbladder neck. Depending on the clinical symptoms along could consider gallbladder ultrasound or nuclear medicine hepatobiliary examination to evaluate for signs of cystic duct obstruction. Gallbladder Ultrasound 04/02/18 00:33 CONCLUSION: 1. Trace perihepatic free fluid in the area of inflammation identified on recent CT. Given the appearance on the current ultrasound I feel that it is unlikely that the CT findings are related to acute cholecystitis. The CT findings are most likely related to omental infarct. Suggest follow-up CT imaging to confirm resolution, if needed. 2. Gallbladder sludge. 3. Hepatic steatosis. Caprini VTE Risk Assessment Caprini VTE Risk Assessment: No/Low Risk (score <= 1) Caprini Risk Assessment Model: Point Value = 1 Point Value = 2 Point Value = 3 Point Value = 5 Age 41-60 Minor surgery BMI > 25 kg/m2 Swollen legs Varicose veins or History of unexplained or recurrent spontaneous Oral contraceptives or hormone replacement Sepsis (< 1 month) Serious lung disease, including pneumonia (< 1 month) Abnormal pulmonary function Acute myocardial infarction Congestive heart failure (< 1 month) History of inflammatory bowel disease Medical patient at bed rest Age 61-74 Arthroscopic surgery Major open surgery (> 45 min) Laparoscopic surgery (> 45 min) Malignancy Confined to bed (> 72 hours) Immobilizing plaster cast Central venous access Age >= 75 History of VTE Family history of VTE Factor V Leiden Prothrombin [id number] Lupus anticoagulant Anticardiolipin antibodies Elevated serum homocysteine Heparin-induced thrombocytopenia Other congenital or acquired thrombophilia Stroke (< 1 month) Elective arthroplasty Hip, pelvis, or leg fracture Acute spinal cord injury (< 1 month) Prophylaxis Regimen: Total Risk Factor Score Risk Level Prophylaxis Regimen 0-1 Low Early ambulation 2 Moderate Order ONE of the following: *Sequential Compression Device (SCD) *Heparin 5000 units SQ BID 3-4 Higher Order ONE of the following medications: *Heparin 5000 units SQ TID *Enoxaparin/Lovenox 40 mg SQ daily (WT < 150 kg, CrCl > 30 mL/min) *Enoxaparin/Lovenox 30 mg SQ daily (WT < 150 kg, CrCl > 10-29 mL/min) *Enoxaparin/Lovenox 30 mg SQ BID (WT < 150 kg, CrCl > 30 mL/min) AND/OR *Sequential Compression Device (SCD) 5 or more Highest Order ONE of the following medications: *Heparin 5000 units SQ TID (Preferred with Epidurals) *Enoxaparin/Lovenox 40 mg SQ daily (WT < 150 kg, CrCl > 30 mL/min) *Enoxaparin/Lovenox 30 mg SQ daily (WT < 150 kg, CrCl > 10-29 mL/min) *Enoxaparin/Lovenox 30 mg SQ BID (WT < 150 kg, CrCl > 30 mL/min) AND *Sequential Compression Device (SCD) Assessment and Plan - Plan Assessment/plan: 1. Abdominal pain CT of the abdomen/pelvis showed focal inflammation within the fat in the right upper quadrant concerning for gallbladder inflammation versus omental infarct Gallbladder ultrasound suggestive of omental infarct Supportive care and pain management Consult general surgery if clinical picture worsens 2. Hyperlipidemia/CAD Continue home medications FEN Clear liquid diet, advance as tolerated Electrolytes: Monitor and replete as needed NS at 100 cc/hour
[2018-04-02] MEDS: Sod Chloride 0.9% Inj 1,000 ML IV.CONT SCH ×2 (03:44→15:52)
--- NOTE | 2018-04-02 09:37 | P.PNIM ---
Subjective Interval history: Follow-up for abdominal pain Still with abdominal pain, midepigastric to right upper quadrant, a little bit better than yesterday no nausea or vomiting, no diarrhea, no fever, no chills. Physical Exam Vital signs: Vital Signs 04/01/18 19:37 04/01/18 21:37 04/01/18 23:21 Temperature 98.7 F Pulse Rate 90 81 76 Respiratory Rate 16 16 16 Blood Pressure 139/77 128/66 103/50 L Pulse Oximetry 95 95 95 04/01/18 23:45 04/02/18 03:01 04/02/18 04:00 Temperature 98.0 F Pulse Rate 70 74 70 Respiratory Rate 16 20 21 Blood Pressure 109/61 124/72 98/52 L Pulse Oximetry 94 L 96 95 04/02/18 07:28 Temperature 98.1 F Pulse Rate 73 Respiratory Rate 12 Blood Pressure 123/64 Pulse Oximetry 95 Intake & Output 04/01/18 04/02/18 04/02/18 18:59 06:59 18:59 Intake Total 1000 / 1000 Balance 1000 / 1000 Weight 192.2 kg Intake: IV 1000 / 1000 NS Inj 1,000 ML @ Wide Open IV. 1000 / 1000 SIG BOLUS ONE Rx#:[id number] Other: Weight On Admission 90.718 kg Narrative: Gen.: No acute distress Head: Normocephalic. Atraumatic. EENT: Pupils equal round and reactive to light. Anicteric sclera. Cardiovascular: Regular rate and rhythm. No murmurs, rubs or gallops. Respiratory: Lungs clear to auscultation bilaterally. No wheezes or rhonchi. Abdomen: Soft, nondistended. No peritoneal signs. Mild epigastric and right upper quadrant tenderness, negative Stroud sign. Musculoskeletal: No gross deformities. No edema. Skin: No obvious rashes or erythema. No jaundice Neuro: Alert awake and oriented 3, cranial nerves intact, no focal deficits. C Results - Labs CBC & Chem 7: 04/01/18 21:30 04/01/18 21:30 Laboratory Results - last 24 hr 04/01/18 04/01/18 04/01/18 21:30 21:30 23:55 WBC 11.4 H RBC 4.39 Hgb 13.1 Hct 39.8 MCV 90.7 MCH 29.8 MCHC 32.9 RDW 13.5 Plt Count 231 MPV 8.3 Neut % (Auto) 55.1 Lymph % (Auto) 36.6 [place] % (Auto) 6.8 Eos % (Auto) 1.1 Baso % (Auto) 0.4 Neut # (Auto) 6.3 Lymph # (Auto) 4.2 [place] # (Auto) 0.8 Eos # (Auto) 0.1 Baso # (Auto) 0.0 WBC Differential . Differential Comment Auto diff final Sodium 142 Potassium 4.0 Chloride 105 Carbon Dioxide 26.0 Anion Gap 11 BUN 9 Creatinine 0.88 Estimated GFR 67 L Random Glucose 84 Calcium 8.8 Total Bilirubin 0.3 AST 27 ALT 38 Alkaline Phosphatase 137 H Total Protein 7.6 Albumin 3.6 Lipase 113 Urine Color Yellow Urine Clarity Clear Urine pH 5.0 Ur Specific [place] 1.013 Urine Protein Negative Urine Glucose (UA) Negative Urine Ketones Negative Urine Occult Blood Negative Urine Nitrate Negative Urine Bilirubin Negative Urine Urobilinogen Less than 2 Ur Leukocyte Esterase Negative Urine RBC Less than 1 Urine WBC Less than 1 Ur Squamous Epith Cells <1 Urine Mucus Few H Micro UA Comment Culture not ind Ur Microscopic Review Not Reportable Urine Culture Comments Culture not ind - Imaging Impressions Abdomen/Pelvis CT 04/01/18 21:14 CONCLUSION: 1. There is focal inflammation within the fat in the right upper quadrant anterior to the liver and abutting the gallbladder fundus and transverse colon. Since the transverse colon does not appear abnormally top considerations include gallbladder inflammation or omental infarct. Given the location and lack of significant gallbladder distention or wall thickening, omental infarct is favored. 2. Questionable 2 mm stone in the gallbladder neck. Depending on the clinical symptoms along could consider gallbladder ultrasound or nuclear medicine hepatobiliary examination to evaluate for signs of cystic duct obstruction. Gallbladder Ultrasound 04/02/18 00:33 CONCLUSION: 1. Trace perihepatic free fluid in the area of inflammation identified on recent CT. Given the appearance on the current ultrasound I feel that it is unlikely that the CT findings are related to acute cholecystitis. The CT findings are most likely related to omental infarct. Suggest follow-up CT imaging to confirm resolution, if needed. 2. Gallbladder sludge. 3. Hepatic steatosis. Assessment and Plan - Plan This is a 57-year-old female with past medical history significant for coronary artery disease and hyperlipidemia presents to the emergency department for the evaluation of 2 days of right upper quadrant pain. Abdominal pain likely secondary omental infarct , ?epiploic appendagitis, rule out acute cholecystitis-CT scan of the abdomen showed focal inflammation within the fat in the right upper quadrant concerning for gallbladder inflammation versus omental infarct. Gallbladder ultrasound subsequently done showed unlikely acute cholecystitis but more likely omental infarct. No ST elevation, no hyperbilirubinemia. Recommendation is to repeat CT imaging to confirm resolution. There was also gallbladder sludge and hepatic steatosis. - conservative management, IVF, start ibuprofen ATC, consult general surgery, pain control. Recheck CBC, CMP tomorrow. Dyslipidemia, coronary artery disease-restart statins. Clear liquid diet for now, advance as tolerated, continue fluids DVT prophylaxis: low risk, ambulate
[2018-04-02] MEDS: Citalopram 20 MG Tablet PO SCH (09:56)
[2018-04-02] MEDS: Senna/Docusate Sodium 8.6/50 MG Tablet PO SCH ×2 (09:56→22:31)
--- NOTE | 2018-04-02 12:07 | P.CONGS ---
[facility] Gen Surgery Consult Note Consult date: 04/02/18 Reason for consult: abdominal pain Requesting physician: Yuliya Miranda Narrative: This is a 57 year old female with a past medical history of myocardial infarction in 2016, dyslipidemia and fatty liver. She presented to the ED with abdominal pain with nausea and vomiting two days prior. The patient denies any fever or chills. She denies any constipation or diarrhea. She has never had an episode like this before. A CT abdomen/pelvis was obtained which shows focal inflammation within the fat of the right upper quadrant anterior to the liver and abutting to the gallbladder; 2 mm stone in the gallbladder neck. An US of the gallbladder was obtained which shows trace pericholecystic fluid. The patient reports she now feels better with only minimal abdominal pain. Of note , the patient reports on and off nausea and vomiting for the past two years. A General Surgery consultation has been requested. Review of Systems All other systems reviewed negative except as stated in [facility] PMFSH - History History Provided By: Patient - Medical History Medical History: Medical History (Last Updated 04/02/18 @ 12:06 by CAROLIN Foley) Coronary artery disease Fatty liver High cholesterol Myocardial infarct - Surgical History Surgical History: Surgical History (Last Updated 04/02/18 @ 12:05 by CAROLIN Foley) H/O tubal ligation - Family History Family History: Family History (Last Updated 04/02/18 @ 03:06 by Merry Chacon MD) Other Family history normal - Tobacco History Second Hand Smoke Exposure: No Tobacco Use In Past 30 Days: Yes Smoking Status: Current every day smoker Tobacco Type: Cigarettes - Alcohol History How Often Do You Have a Drink Containing Alcohol: Never - Substance Use History Substance History: No History of Abuse - Travel History Recent Travel in the [place] Within the Last 8 Weeks: No Recent Travel Out of the Country Within the Last 8 Weeks: No - Immunization History Tetanus Immunization: >5 Years Hx Influenza Vaccine This Season: Yes Medications and Allergies Allergies Allergy/AdvReac Type Severity Reaction Status Date / Time Sulfa (Sulfonamide Allergy Severe Rash Verified 04/01/18 21:58 Antibiotics) Home Medications Medication Instructions Recorded Confirmed Type citalopram [Celexa] 20 mg PO DAILY 04/01/18 04/01/18 History rosuvastatin [Crestor] 20 mg PO DAILY 04/01/18 04/01/18 History Active Medications: Active Medications Al Hydroxide/Mg Hydroxide (Milk Of Magnesia Liq) 30 ml PO Q12H PRN PRN Reason: Mild Constipation Atorvastatin Calcium (Lipitor) 40 mg PO DAILY [facility] Last Admin: 04/02/18 09:57 Dose: 40 mg Bisacodyl (Dulcolax Supp) 10 mg RECTAL DAILY PRN PRN Reason: SEVERE CONSITIPATION Citalopram Hydrobromide (Celexa) 20 mg PO DAILY [facility] Last Admin: 04/02/18 09:56 Dose: 20 mg Sodium Chloride (Ns Inj) 1,000 mls @ 100 mls/hr IV.CONT .Q10H [facility] Last Admin: 04/02/18 03:44 Dose: 100 mls/hr Ibuprofen (Motrin) 600 mg PO Q8H [facility] Lactulose (Lactulose Liq) 30 ml PO DAILY PRN PRN Reason: SEVERE CONSITIPATION Morphine Sulfate (Morphine Inj) 2 mg IV.PUSH Q4H PRN PRN Reason: pain 6-10 Last Admin: 04/02/18 03:44 Dose: 2 mg Ondansetron HCl (Zofran Inj) 4 mg IV.PUSH Q6H PRN PRN Reason: NAUSEA OR VOMITING Last Admin: 04/02/18 03:45 Dose: 4 mg Senna/Docusate Sodium (Elsa-Colace) 1 tab PO BID [facility] Last Admin: 04/02/18 09:56 Dose: 1 tab Sennosides (Senokot) 17.2 mg PO Q12H PRN PRN Reason: Moderate Constipation Sodium Chloride (Ns Flush) 2 ml IV.FLUSH PRN PRN PRN Reason: FLUSH AFTER USING IV ACCESS Last Admin: 04/01/18 21:32 Dose: 2 ml Exam Vital signs: Vital Signs 04/01/18 19:37 04/01/18 21:37 04/01/18 23:21 Temperature 98.7 F Pulse Rate 90 81 76 Respiratory Rate 16 16 16 Blood Pressure 139/77 128/66 103/50 L Pulse Oximetry 95 95 95 04/01/18 23:45 04/02/18 03:01 04/02/18 04:00 Temperature 98.0 F Pulse Rate 70 74 70 Respiratory Rate 16 20 21 Blood Pressure 109/61 124/72 98/52 L Pulse Oximetry 94 L 96 95 04/02/18 07:28 Temperature 98.1 F Pulse Rate 73 Respiratory Rate 12 Blood Pressure 123/64 Pulse Oximetry 95 Intake & Output 04/01/18 04/02/18 04/02/18 18:59 06:59 18:59 Intake Total 1000 / 1000 Balance 1000 / 1000 Weight 192.2 kg Intake: IV 1000 / 1000 NS Inj 1,000 ML @ Wide Open IV. 1000 / 1000 SIG BOLUS ONE Rx#:[id number] Other: Weight On Admission 90.718 kg Narrative: GENERAL: 57 year old female ambulating in her room independently in no acute distress. SKIN: Warm and dry. HEAD: Atraumatic. Normocephalic. EYES: Pupils equal and round. No scleral icterus. No injection or drainage. ENT: No nasal bleeding or discharge. Mucous membranes pink and moist. NECK: Trachea midline. CARDIOVASCULAR: Regular rate and rhythm. RESPIRATORY: No accessory muscle use. Clear to auscultation. Breath sounds equal bilaterally. Pain with inspiration. GASTROINTESTINAL: Abdomen soft, nondistended. Moderate RUQ and epigastric tenderness with palpation. MUSCULOSKELETAL: Extremities without clubbing, cyanosis, or edema. No obvious deformities. NEUROLOGICAL: Awake and alert. No obvious cranial nerve deficits. Motor grossly within normal limits. Five out of 5 muscle strength in the arms and legs. Normal speech. PSYCHIATRIC: Appropriate mood and affect; insight and judgment normal. Results - Labs 04/04/18 07:13 04/04/18 07:13 Abnormal lab results Laboratory Results WBC 11.4 th/mm3 (4.0-11.0) H 04/01/18 21:30 RBC 4.39 mil/mm3 (4.00-5.30) 04/01/18 21:30 Hgb 13.1 gm/dL (11.6-15.3) 04/01/18 21:30 Hct 39.8 % (35.0-46.0) 04/01/18 21:30 MCV 90.7 fL (80.0-100.0) 04/01/18 21:30 MCH 29.8 pg (27.0-34.0) 04/01/18 21:30 MCHC 32.9 % (32.0-36.0) 04/01/18 21:30 RDW 13.5 % (11.6-17.2) 04/01/18 21:30 Plt Count 231 th/mm3 (150-450) 04/01/18 21:30 MPV 8.3 fL (7.0-11.0) 04/01/18 21:30 Neut % (Auto) 55.1 % (16.0-70.0) 04/01/18 21:30 Lymph % (Auto) 36.6 % (9.0-44.0) 04/01/18 21:30 [place] % (Auto) 6.8 % (0.0-8.0) 04/01/18 21:30 Eos % (Auto) 1.1 % (0.0-4.0) 04/01/18 21:30 Baso % (Auto) 0.4 % (0.0-2.0) 04/01/18 21:30 Neut # (Auto) 6.3 th/mm3 (1.8-7.7) 04/01/18 21:30 Lymph # (Auto) 4.2 th/mm3 (1.0-4.8) 04/01/18 21:30 [place] # (Auto) 0.8 th/mm3 (0.0-0.9) 04/01/18 21:30 Eos # (Auto) 0.1 th/mm3 (0.0-0.4) 04/01/18 21:30 Baso # (Auto) 0.0 th/mm3 (0.0-0.2) 04/01/18 21:30 WBC Differential . 04/01/18 21:30 Differential Comment Auto diff final 04/01/18 21:30 Sodium 142 meq/L (136-145) 04/01/18 21:30 Potassium 4.0 meq/L (3.5-5.1) 04/01/18 21:30 Chloride 105 meq/L (98-107) 04/01/18 21:30 Carbon Dioxide 26.0 meq/L (21.0-32.0) 04/01/18 21:30 Anion Gap 11 meq/L (5-15) 04/01/18 21:30 BUN 9 mg/dL (7-18) 04/01/18 21:30 Creatinine 0.88 mg/dL (0.50-1.00) 04/01/18 21:30 Estimated GFR 67 mL/min (>89) L 04/01/18 21:30 Random Glucose 84 mg/dL (74-106) 04/01/18 21:30 Calcium 8.8 mg/dL (8.5-10.1) 04/01/18 21:30 Total Bilirubin 0.3 mg/dL (0.2-1.0) 04/01/18 21:30 AST 27 U/L (15-37) 04/01/18 21:30 ALT 38 U/L (10-53) 04/01/18 21:30 Alkaline Phosphatase 137 U/L (45-117) H 04/01/18 21:30 Total Protein 7.6 g/dL (6.4-8.2) 04/01/18 21:30 Albumin 3.6 g/dL (3.4-5.0) 04/01/18 21: Lipase 113 U/L (73-393) 04/01/18 21:30 Urine Color Yellow (Yellw/Straw) 04/01/18 23:55 Urine Clarity Clear (Clear) 04/01/18 23:55 Urine pH 5.0 (5.0-8.5) 04/01/18 23:55 Ur Specific [place] 1.013 (1.002-1.035) 04/01/18 23:55 Urine Protein Negative mg/dL (Neg-Trace) 04/01/18 23:55 Urine Glucose (UA) Negative mg/dL (Negative) 04/01/18 23:55 Urine Ketones Negative mg/dL (Negative) 04/01/18 23:55 Urine Occult Blood Negative (Negative) 04/01/18 23:55 Urine Nitrate Negative (Negative) 04/01/18 23:55 Urine Bilirubin Negative (Negative) 04/01/18 23:55 Urine Urobilinogen Less than 2 mg/dL (Less than 2) 04/01/18 23:55 Ur Leukocyte Esterase Negative (Negative) 04/01/18 23:55 Urine RBC Less than 1 /hpf (0-3) 04/01/18 23:55 Urine WBC Less than 1 /hpf (0-5) 04/01/18 23:55 Ur Squamous Epith Cells <1 /hpf (0-5) 04/01/18 23:55 Urine Mucus Few /lpf (Occasional) H 04/01/18 23:55 Micro UA Comment Culture not ind 04/01/18 23:55 Ur Microscopic Review Not Reportable 04/01/18 23:55 Urine Culture Comments Culture not ind 04/01/18 23:55 Impressions Abdomen/Pelvis CT 04/01/18 21:14 CONCLUSION: 1. There is focal inflammation within the fat in the right upper quadrant anterior to the liver and abutting the gallbladder fundus and transverse colon. Since the transverse colon does not appear abnormally top considerations include gallbladder inflammation or omental infarct. Given the location and lack of significant gallbladder distention or wall thickening, omental infarct is favored. 2. Questionable 2 mm stone in the gallbladder neck. Depending on the clinical symptoms along could consider gallbladder ultrasound or nuclear medicine hepatobiliary examination to evaluate for signs of cystic duct obstruction. Gallbladder Ultrasound 04/02/18 00:33 CONCLUSION: 1. Trace perihepatic free fluid in the area of inflammation identified on recent CT. Given the appearance on the current ultrasound I feel that it is unlikely that the CT findings are related to acute cholecystitis. The CT findings are most likely related to omental infarct. Suggest follow-up CT imaging to confirm resolution, if needed. 2. Gallbladder sludge. 3. Hepatic steatosis. - Imaging CT scan - abdomen: image reviewed US - abdomen: image reviewed Assessment and Plan - Assessment (1) Cholecystitis Code(s): K81.9 - Cholecystitis, unspecified Status: Acute Plan: 57 year old female with RUQ and epigastric tenderness -Clinical correlation with cholecystitis -Will plan for lap homar tomorrow -Obtain consents -Diet as tolerated today; NPO after MN -Explained procedure in detail include risks and benefits -Recommend GI consult as outpatient -Thank you for this consult; We will continue to follow - Plan Discussed Condition With: Dr. Karen Villarreal - Attending Attestation I CERTIFY AND ATTEST THAT I EXAMINED THE PATIENT IN THEIR ROOM. PROFESSOR OF POLITICAL SCIENCE DOCUMENTED OUR VISIT AN ENTERED ORDERS IN THE EMR UNDER MY DIRECT SUPERVISION.. CARE PLAN REVIEWED WITH PATIENT AND STAFF. SHEA RASMUSSEN MD FACS
[2018-04-02] MEDS: Ibuprofen 600 MG Tablet PO SCH ×2 (12:13→18:57)
[2018-04-03] MEDS: Ibuprofen 600 MG Tablet PO SCH ×3 (02:20→17:06)
[2018-04-03] MEDS: Sod Chloride 0.9% Inj 1,000 ML IV.CONT SCH ×4 (02:25→23:48)
[2018-04-03 07:21] LABS: Baso % (Auto) 0.5 % (0.0-2.0); Eos # (Auto) 0.1 th/mm3 (0.0-0.4); Eos % (Auto) 1.5 % (0.0-4.0); Hematocrit 33.6 % (35.0-46.0); Hemoglobin 11.3 gm/dL (11.6-15.3); Lymph # (Auto) 2.2 th/mm3 (1.0-4.8); Lymph % (Auto) 33.3 % (9.0-44.0); Mean Corpuscular HGB Conc 33.5 % (32.0-36.0); Mean Corpuscular Hemoglobin 30.3 pg (27.0-34.0); Mean Corpuscular Volume 90.3 fL (80.0-100.0); Mean Platelet Volume 7.9 fL (7.0-11.0); Mono # (Auto) 0.5 th/mm3 (0.0-0.9); Mono % (Auto) 7.5 % (0.0-8.0); Neut # (Auto) 3.8 th/mm3 (1.8-7.7); Neut % (Auto) 57.2 % (16.0-70.0); Platelet Count 186 th/mm3 (150-450); Red Blood Count 3.72 mil/mm3 (4.00-5.30); Red Cell Distribution Width 13.8 % (11.6-17.2); White Blood Count 6.7 th/mm3 (4.0-11.0)
[2018-04-03 08:06] LABS: Alanine Aminotransferase 30 U/L (10-53); Alkaline Phosphatase 113 U/L (45-117); Anion Gap 9 meq/L (5-15); Aspartate Aminotransferase 19 U/L (15-37); Blood Urea Nitrogen 5 mg/dL (7-18); Carbon Dioxide 26.4 meq/L (21.0-32.0); Chloride 112 meq/L (98-107); Glomerular Filtration Rate 81 mL/min (>89); Glucose,Random 88 mg/dL (74-106); Potassium 4.1 meq/L (3.5-5.1); Sodium 147 meq/L (136-145); Total Protein 6.3 g/dL (6.4-8.2)
[2018-04-03] MEDS: Citalopram 20 MG Tablet PO SCH (08:10)
[2018-04-03] MEDS: Senna/Docusate Sodium 8.6/50 MG Tablet PO SCH ×2 (08:10→20:58)
[2018-04-03] MEDS ORDERED: Bupivacaine/Epinephrine Inj 0.25% 50 ML Vial ONE (13:27)
--- NOTE | 2018-04-03 13:53 | P.PNIM ---
Subjective Interval history: f/u for abdominal pain Abdominal pain better, no nausea, no vomiting, no fever, no chills, no diarrhea. For surgery this afternoon at 2 PM. Physical Exam Vital signs: Vital Signs 04/02/18 15:27 04/02/18 20:00 04/02/18 23:27 Temperature 98.2 F 98.4 F 98.5 F Pulse Rate 67 69 70 Respiratory Rate 16 17 17 Blood Pressure 121/64 113/58 L 110/57 L Pulse Oximetry 97 95 93 L 04/03/18 04:00 04/03/18 07:54 04/03/18 11:09 Temperature 97.7 F 97.6 F 97.7 F Pulse Rate 81 74 75 Respiratory Rate 16 18 18 Blood Pressure 108/69 147/78 H 142/77 H Pulse Oximetry 93 L 94 L 93 L Intake & Output 04/02/18 04/03/18 04/03/18 18:59 06:59 18:59 Intake Total 1000 / 1000 1100 / 1100 Balance 1000 / 1000 1100 / 1100 Intake: IV 1000 / 1000 1100 / 1100 NS Inj 1,000 ML @ 100 mls/hr IV 1000 / 1000 1000 / 1000 .CONT .Q10H [facility] Rx#:[id number] Rocephin Inj 1,000 MG In NS Inj 100 / 100 100 ML @ 200 mls/hr IV.SIG Q24H [facility] Rx#:[id number] Oral 0 / 0 Other: # Voids 1 Narrative: Gen.: No acute distress Head: Normocephalic. Atraumatic. EENT: Pupils equal round and reactive to light. Anicteric sclera. Cardiovascular: Regular rate and rhythm. No murmurs, rubs or gallops. Respiratory: Lungs clear to auscultation bilaterally. No wheezes or rhonchi. Abdomen: Soft, nondistended. No peritoneal signs. Mild epigastric and right upper quadrant tenderness, negative Stroud sign. Musculoskeletal: No gross deformities. No edema. Skin: No obvious rashes or erythema. No jaundice Neuro: Alert awake and oriented 3, cranial nerves intact, no focal deficits. Results - Labs CBC & Chem 7: 04/03/18 06:47 04/03/18 06:47 Laboratory Results - last 24 hr 04/03/18 04/03/18 06:47 06:47 WBC 6.7 RBC 3.72 L Hgb 11.3 L Hct 33.6 L MCV 90.3 MCH 30.3 MCHC 33.5 RDW 13.8 Plt Count 186 MPV 7.9 Neut % (Auto) 57.2 Lymph % (Auto) 33.3 [place] % (Auto) 7.5 Eos % (Auto) 1.5 Baso % (Auto) 0.5 Neut # (Auto) 3.8 Lymph # (Auto) 2.2 [place] # (Auto) 0.5 Eos # (Auto) 0.1 Baso # (Auto) 0.0 WBC Differential . Differential Comment Auto diff final Sodium 147 H Potassium 4.1 Chloride 112 H Carbon Dioxide 26.4 Anion Gap 9 BUN 5 L Creatinine 0.74 Estimated GFR 81 L Random Glucose 88 Calcium 8.0 L D Total Bilirubin 0.3 AST 19 ALT 30 Alkaline Phosphatase 113 Total Protein 6.3 L D Albumin 3.0 L D Assessment and Plan - Plan This is a 57-year-old female with past medical history significant for coronary artery disease and hyperlipidemia presents to the emergency department for the evaluation of 2 days of right upper quadrant pain. Abdominal pain likely secondary omental infarct , ?epiploic appendagitis vs acute cholecystitis-CT scan of the abdomen showed focal inflammation within the fat in the right upper quadrant concerning for gallbladder inflammation versus omental infarct. Gallbladder ultrasound subsequently done showed unlikely acute cholecystitis but more likely omental infarct. No AST/ALT elevation, no hype There was also gallbladder sludge and hepatic steatosis. General surgery consulted, per surgery, likely acute cholecystitis, for fluoroscopic cholecystectomy -Ceftriaxone started, continue IVF, [place] for pain control. May discharge after laparoscopic cholecystectomy and cleared by general surgery. Dyslipidemia, coronary artery disease- statins. Clear liquid diet for now, advance as tolerated, continue fluids DVT prophylaxis: low risk, ambulate
--- NOTE | 2018-04-03 13:55 | P.DS ---
Date of admission: 04/02/18 14:33 Primary care physician: UNKNOWN Attending physician on discharge: Yuliya Miranda Anticipated date of discharge: 04/03/18 Brief History from admission: 57-year-old female with past medical history significant for coronary artery disease and hyperlipidemia presents to the emergency department for the evaluation of 2 days of right upper quadrant pain. The patient endorses associated nausea and vomiting. No diarrhea. No hematemesis. She denies any fever/chills. No chest pain or shortness of breath. DS: Diagnosis - Discharge Diagnosis (1) Cholecystitis Status: Acute (2) Omental infarction Status: Acute DS: Medications - Discharge Medications Prescriptions: cefuroxime axetil 500 mg PO Q12H #12 tab hydrocodone-acetaminophen [[place]] 1 tab PO Q4H PRN #15 tab PRN Reason: Pain DS: Summary Hospital Course: This is a 57-year-old female with past medical history significant for coronary artery disease and hyperlipidemia presents to the emergency department for the evaluation of 2 days of right upper quadrant pain. CT scan of the abdomen showed focal inflammation within the fat in the right upper quadrant concerning for gallbladder inflammation versus omental infarct. Gallbladder ultrasound subsequently done showed unlikely acute cholecystitis but more likely omental infarct. No AST/ALT elevation, no hype There was also gallbladder sludge and hepatic steatosis. General surgery consulted, per surgery, likely acute cholecystitis, patient went for fluoroscopic cholecystectomy. After cleared by surgery, patient was discharged with cefuroxime. - Time Spent with Patient Total time spent providing and/or coordinating discharge services: Greater than 30 minutes - Quality: VTE Deep Vein Thrombosis/Pulmonary Embolism Present on Admission: No Exam Vital signs: Vital Signs 04/02/18 15:27 04/02/18 20:00 04/02/18 23:27 Temperature 98.2 F 98.4 F 98.5 F Pulse Rate 67 69 70 Respiratory Rate 16 17 17 Blood Pressure 121/64 113/58 L 110/57 L Pulse Oximetry 97 95 93 L 04/03/18 04:00 04/03/18 07:54 04/03/18 11:09 Temperature 97.7 F 97.6 F 97.7 F Pulse Rate 81 74 75 Respiratory Rate 16 18 18 Blood Pressure 108/69 147/78 H 142/77 H Pulse Oximetry 93 L 94 L 93 L Intake & Output 04/02/18 04/03/18 04/03/18 18:59 06:59 18:59 Intake Total 1000 / 1000 1100 / 1100 Balance 1000 / 1000 1100 / 1100 Intake: IV 1000 / 1000 1100 / 1100 NS Inj 1,000 ML @ 100 mls/hr IV 1000 / 1000 1000 / 1000 .CONT .Q10H [facility] Rx#:[id number] Rocephin Inj 1,000 MG In NS Inj 100 / 100 100 ML @ 200 mls/hr IV.SIG Q24H [facility] Rx#:[id number] Oral 0 / 0 Other: # Voids 1 Narrative: Not in distress, well-nourished, looks stated age PERRL, pink conjunctiva without injection, anicteric Nose without bleeding, airway patent, oropharynx clear Supple neck, no masses or thyromegaly, trachea midline Normal rate and regular rhythm, no murmurs gallops or rubs appreciated. Clear to auscultation and symmetric bilaterally, normal respiratory effort. Normal bowel sounds, soft, mild epigastric tenderness, no guarding. Extremities without clubbing, cyanosis, or edema. No rash of generalized distribution. Skin is warm and dry. AAO x3, no cranial nerve deficits, moves all 4 extremities, no focal neurologic deficits Normal mood, appropriate affect Results Labs on day of discharge: Labs from last 24 hours 04/03/18 04/03/18 06:47 06:47 WBC 6.7 RBC 3.72 L Hgb 11.3 L Hct 33.6 L MCV 90.3 MCH 30.3 MCHC 33.5 RDW 13.8 Plt Count 186 MPV 7.9 Neut % (Auto) 57.2 Lymph % (Auto) 33.3 [place] % (Auto) 7.5 Eos % (Auto) 1.5 Baso % (Auto) 0.5 Neut # (Auto) 3.8 Lymph # (Auto) 2.2 [place] # (Auto) 0.5 Eos # (Auto) 0.1 Baso # (Auto) 0.0 WBC Differential . Differential Comment Auto diff final Sodium 147 H Potassium 4.1 Chloride 112 H Carbon Dioxide 26.4 Anion Gap 9 BUN 5 L Creatinine 0.74 Estimated GFR 81 L Random Glucose 88 Calcium 8.0 L D Total Bilirubin 0.3 AST 19 ALT 30 Alkaline Phosphatase 113 Total Protein 6.3 L D Albumin 3.0 L D - Impressions ITS Impressions Abdomen/Pelvis CT 04/01/18 21:14 CONCLUSION: 1. There is focal inflammation within the fat in the right upper quadrant anterior to the liver and abutting the gallbladder fundus and transverse colon. Since the transverse colon does not appear abnormally top considerations include gallbladder inflammation or omental infarct. Given the location and lack of significant gallbladder distention or wall thickening, omental infarct is favored. 2. Questionable 2 mm stone in the gallbladder neck. Depending on the clinical symptoms along could consider gallbladder ultrasound or nuclear medicine hepatobiliary examination to evaluate for signs of cystic duct obstruction. Gallbladder Ultrasound 04/02/18 00:33 CONCLUSION: 1. Trace perihepatic free fluid in the area of inflammation identified on recent CT. Given the appearance on the current ultrasound I feel that it is unlikely that the CT findings are related to acute cholecystitis. The CT findings are most likely related to omental infarct. Suggest follow-up CT imaging to confirm resolution, if needed. 2. Gallbladder sludge. 3. Hepatic steatosis. Discharge Plan - Discharge Condition Condition: Stable - Discharge Order Discharge Orders: Discharge Order (Routine); Ordered 04/03/18 Ordered By: Yuliya Miranda - Discharge Details Anticipated Discharge Date: 04/02/18 - Physicians Team Primary Care Provider: UNKNOWN, Attending Provider: Yuliya Miranda Other Providers: [employer],Insurance ; Rosendo Jones MD
[2018-04-03] MEDS ORDERED: Glycopyrrolate Inj 1 MG/5 ML Syringe IV.PUSH ONE (14:26)
[2018-04-03] MEDS ORDERED: Lidocaine PF 1% Inj 5 ML Syringe INFILTRATN ONE (14:26)
[2018-04-03] MEDS ORDERED: Labetalol HCl Inj 100 MG/20 ML Vial IV.CONT ONE (14:26)
[2018-04-03] MEDS ORDERED: Neostigmine Inj 5 MG/5 ML Syringe IV.PUSH ONE (14:26)
[2018-04-03] MEDS ORDERED: fentaNYL Citrate Inj 100 MCG/2 ML Ampul ONE (15:37)
--- NOTE | 2018-04-03 15:57 | MP ---
cc: Rosendo Jones MD DATE OF OPERATION: 04/03/2018 PREOPERATIVE DIAGNOSES: 1. Acute cholecystitis. 2. Possibly infarcted omentum, right upper quadrant. POSTOPERATIVE DIAGNOSES: 1. Acute cholecystitis. 2. Possibly infarcted omentum, right upper quadrant. 3. Thickened edematous omentum adjacent to a chronically inflamed gallbladder. PROCEDURE PERFORMED: 1. Diagnostic laparoscopy. 2. Laparoscopic cholecystectomy. SURGEON: Rosendo Jones MD. WWE WRESTLER: Shanna. ANESTHESIA: General endotracheal. COMPLICATIONS: None. INDICATIONS FOR PROCEDURE: Ms. Villarreal is a very pleasant 57-year-old female who presented to the hospital with right upper quadrant abdominal pain. She was worked up and found to have an abnormal CT with a thickened, inflamed omentum in the right upper quadrant, concerning for possible omental infarction versus cholecystitis. The patient had an ultrasound which demonstrated a small amount of free fluid with inflammatory change noted in the right upper quadrant with gallbladder sludge and a fatty liver. It was difficult to ascertain if this was acute cholecystitis or in fact an omental infarction of this segment. The patient had persistent pain. She was offered diagnostic laparoscopy, possible cholecystectomy, and she was agreeable. INTRAOPERATIVE FINDINGS: The patient did have some thickened, inflamed omentum in the right upper quadrant, adjacent to the gallbladder. It was wrapped around the gallbladder. We peeled it back. However, the gallbladder appeared chronically inflamed, did not have acute inflammatory change. There were additional omental adhesions on the gallbladder itself, but this thickened area of omentum was superior to this. It was adherent to the liver and was gently dissected off. DETAILS OF PROCEDURE: The patient was identified, brought to the operating room, placed supine on the operating table. After adequate general endotracheal anesthesia was achieved, the abdomen was prepped and draped in standard surgical fashion. Supraumbilical space was anesthetized with 0.25% Marcaine. Supraumbilical incision was made. Dissection was carried down through subcutaneous tissue to midline fascia. Midline fascia was then incised sharply. Finger was then placed in the peritoneal cavity without difficulty. Blunt balloon trocar was inserted and the abdomen was insufflated to 15 mmHg using CO2 gas. Next, two 5 mm trocars were placed in the right upper quadrant after anesthetizing skin and subcutaneous tissue with 0.25% Marcaine. Immediately, we identified a very thickened, inflamed, edematous omentum in the right upper quadrant, which was adherent to the abdominal wall. This was carefully taken down with blunt dissection. Once we did this, the omentum was found to be densely adherent to the right lobe of the liver. Again, using blunt careful dissection, we freed the omentum up. Underneath the omentum was the gallbladder. The gallbladder appeared chronically scarred, but did not have any signs of acute inflammatory change. The gallbladder was retracted cephalad. There were some omental adhesions on the underside of the gallbladder indicating chronic inflammation. These were taken down with blunt and sharp dissection. The omentum was carefully inspected and photographed. It was clearly thickened and edematous, but there was no evidence of a mass and no evidence of any kind of transverse colonic process. We went ahead and redirected our attention to the gallbladder. Gallbladder was dissected free. Gallbladder neck was carefully dissected out and the cystic artery and cystic duct were clearly identified in 2 planes entering the neck of the gallbladder. Once they were confirmed in 2 planes, they were clipped twice proximally, once distally, and then divided. The gallbladder was then dissected out of the hepatic fossa. The hepatic fossa was a little oozy, but this was controlled with electrocautery Bovie. Gallbladder was placed in an Endopouch bag and brought out through the supraumbilical port, inspected. Clips were in place on the cystic duct stump. There was no evidence of leakage of bile. Gallbladder contained no obvious stones. Gallbladder was mildly thickened, indicating chronic inflammatory change. Gallbladder was sent to pathology for analysis. Next, the liver bed was reinspected. Several bleeding points in the liver bed were controlled with electrocautery Bovie. Suction chargeback specialist was used to confirm there was no active bleeding from the liver bed. Clips were reinspected on the cystic artery and cystic duct stump. Clips appeared to be intact and there was no evidence of bleeding, no leakage of bile. Liver bed was then inspected a third time and there was no bleeding noted. We went ahead and placed some Mei in the liver bed due to its raw surface. The Mei was sprayed along the liver bed. There was no bleeding through the Mei as it remained white and powdery. All the irrigant was removed from the abdominal cavity. The omentum was placed in the right upper quadrant in the infrahepatic space. The abdomen was then carefully desufflated. The midline fascia was repaired with 0 Vicryl in a [id number] fashion. Skin was closed with 4-0 Vicryl. Please note that during this case, I was forced to use the applied clip horizontal boring mill operator instead of the Ethicon Ligamax. The hospital did not have any Ligamax available and had replaced it with the applied clip horizontal boring mill operator. During the trial period, I had a clips fall off on the applied and I advised hospital staff I did not want to continue to use it. Unfortunately, they ran out of Ligamax clip appliers and there were none available for this case. Rosendo MD ARUN Padilla/iftikhar , 03:18 PM , 03:28 PM
[2018-04-04] MEDS: Ibuprofen 600 MG Tablet PO SCH ×2 (04:34→09:12)
[2018-04-04] MEDS: Sod Chloride 0.9% Inj 1,000 ML IV.CONT SCH ×2 (06:55→17:18)
[2018-04-04 08:23] LABS: Hematocrit 31.8 % (35.0-46.0); Hemoglobin 10.7 gm/dL (11.6-15.3); Mean Corpuscular HGB Conc 33.6 % (32.0-36.0); Mean Corpuscular Hemoglobin 30.5 pg (27.0-34.0); Mean Corpuscular Volume 90.8 fL (80.0-100.0); Platelet Count 188 th/mm3 (150-450); Red Cell Distribution Width 13.7 % (11.6-17.2); White Blood Count 7.5 th/mm3 (4.0-11.0)
[2018-04-04 08:48] LABS: Carbon Dioxide 26.9 meq/L (21.0-32.0)
[2018-04-04] MEDS: Citalopram 20 MG Tablet PO SCH (09:12)
[2018-04-04] MEDS: Senna/Docusate Sodium 8.6/50 MG Tablet PO SCH (09:12)
--- NOTE | 2018-04-04 14:19 | P.PN ---
Subjective Interval history: Follow-up cholecystitis April 04, 2018-patient seen and examined, she status post lap cholecystectomy. Denies any significant abdominal pain. Tolerated p.o. without any competition nausea and vomiting Physical Exam Vital signs: Vital Signs 04/03/18 15:30 04/03/18 15:35 04/03/18 15:40 Temperature 97.5 F L Pulse Rate 85 80 Respiratory Rate 17 17 Blood Pressure 128/61 140/63 Pulse Oximetry 88 L 96 94 L 04/03/18 15:45 04/03/18 16:00 04/03/18 16:09 Temperature 97.5 F L Pulse Rate 75 73 Respiratory Rate 14 14 Blood Pressure 126/60 128/66 Pulse Oximetry 92 L 93 L 93 L 04/03/18 19:14 04/03/18 20:00 04/04/18 00:00 Temperature 98.1 F 98 F 98.5 F Pulse Rate 72 80 69 Respiratory Rate 12 18 18 Blood Pressure 150/74 H 140/64 130/63 Pulse Oximetry 94 L 92 L 04/04/18 04:00 04/04/18 08:00 04/04/18 12:00 Temperature 98.1 F 97.8 F 98.0 F Pulse Rate 53 L 69 65 Respiratory Rate 18 16 18 Blood Pressure 127/59 L 123/60 112/56 L Pulse Oximetry 93 L 93 L 94 L Intake & Output 04/03/18 04/04/18 04/04/18 18:59 06:59 18:59 Intake Total 2700 / 2700 1490 / 1490 Output Total 100 / 100 1000 / 1000 Balance 2600 / 2600 490 / 490 Weight 192.2 kg Intake: IV 1100 / 1100 1000 / 1000 NS Inj 1,000 ML @ 100 mls/hr IV 1000 / 1000 1000 / 1000 .CONT .Q10H [facility] Rx#:[id number] Rocephin Inj 1,000 MG In NS Inj 100 / 100 100 ML @ 200 mls/hr IV.SIG Q24H [facility] Rx#:[id number] Oral 600 / 600 490 / 490 Anesthesia Amount 1000 / 1000 Output: Urine 1000 / 1000 Estimated Blood Loss 100 / 100 Other: # Voids 1 4 Date of Last Bowel Movement 04/03/18 04/03/18 Narrative: Gen.: NAD Head: Normocephalic. Atraumatic. EENT: Pupils equal round and reactive to light. Anicteric sclera. Cardiovascular: Regular rate and rhythm. No murmurs, rubs or gallops. Respiratory: Lungs clear to auscultation bilaterally. No wheezes or rhonchi. Abdomen: Soft, nondistended. No peritoneal signs. inc c/d/i Musculoskeletal: No gross deformities. No edema. Skin: No obvious rashes or erythema. No jaundice Neuro: Alert awake and oriented 3, cranial nerves intact, no focal deficits. Results - Labs CBC & Chem 7: 04/04/18 07:13 04/04/18 07:13 Laboratory Results - last 24 hr 04/04/18 04/04/18 07:13 07:13 WBC 7.5 RBC 3.50 L Hgb 10.7 L Hct 31.8 L MCV 90.8 MCH 30.5 MCHC 33.6 RDW 13.7 Plt Count 188 MPV 8.0 Sodium 144 Potassium 4.0 Chloride 107 Carbon Dioxide 26.9 Anion Gap 10 BUN 5 L Creatinine 0.85 Estimated GFR 69 L Random Glucose 102 Calcium 8.0 L - Procedures Lap cholecystectomy April 03, 2018 Assessment and Plan - Assessment (1) Cholecystitis Code(s): K81.9 - Cholecystitis, unspecified Status: Acute (2) Omental infarction Code(s): K55.069 - Acute infarction of intestine, part and extent unspecified Status: Acute - Plan 57-year-old with Cholecystitis Status post lap cholecystectomy April 03, 2018 Management per general surgery Pain management accordingly Dyslipidemia, coronary artery disease- Continue statins. DVT prophylaxis: low risk, ambulate
--- NOTE | 2018-04-04 14:21 | P.DS ---
Date of admission: 04/02/18 14:33 Primary care physician: UNKNOWN Anticipated date of discharge: 04/04/18 Brief History from admission: 57-year-old female with past medical history significant for coronary artery disease and hyperlipidemia presents to the emergency department for the evaluation of 2 days of right upper quadrant pain. The patient endorses associated nausea and vomiting. No diarrhea. No hematemesis. She denies any fever/chills. No chest pain or shortness of breath. DS: Diagnosis - Discharge Diagnosis (1) Cholecystitis Status: Acute (2) Omental infarction Status: Acute DS: Medications - Discharge Medications Prescriptions: cefuroxime axetil 500 mg PO Q12H #12 tab hydrocodone-acetaminophen [[place]] 1 tab PO Q4H PRN #15 tab PRN Reason: Pain DS: Summary Hospital Course: General surgery was consulted, and patient was taken to the operating room on April 03, 2018 and underwent lap cholecystectomy. Pain management were provided accordingly and her diet was advanced. All electrolyte abnormalities were corrected. Patient was continued on his treatment for other chronic medical conditions. DVT and GI prophylaxis were provided. Prior to discharge, patient's vitals remained stable . - Time Spent with Patient Total time spent providing and/or coordinating discharge services: Less than 30 minutes - Quality: VTE Deep Vein Thrombosis/Pulmonary Embolism Present on Admission: No Exam Vital signs: Vital Signs 04/03/18 15:30 04/03/18 15:35 04/03/18 15:40 Temperature 97.5 F L Pulse Rate 85 80 Respiratory Rate 17 17 Blood Pressure 128/61 140/63 Pulse Oximetry 88 L 96 94 L 04/03/18 15:45 04/03/18 16:00 04/03/18 16:09 Temperature 97.5 F L Pulse Rate 75 73 Respiratory Rate 14 14 Blood Pressure 126/60 128/66 Pulse Oximetry 92 L 93 L 93 L 04/03/18 19:14 04/03/18 20:00 04/04/18 00:00 Temperature 98.1 F 98 F 98.5 F Pulse Rate 72 80 69 Respiratory Rate 12 18 18 Blood Pressure 150/74 H 140/64 130/63 Pulse Oximetry 94 L 92 L 04/04/18 04:00 04/04/18 08:00 04/04/18 12:00 Temperature 98.1 F 97.8 F 98.0 F Pulse Rate 53 L 69 65 Respiratory Rate 18 16 18 Blood Pressure 127/59 L 123/60 112/56 L Pulse Oximetry 93 L 93 L 94 L Intake & Output 04/03/18 04/04/18 04/04/18 18:59 06:59 18:59 Intake Total 2700 / 2700 1490 / 1490 Output Total 100 / 100 1000 / 1000 Balance 2600 / 2600 490 / 490 Weight 192.2 kg Intake: IV 1100 / 1100 1000 / 1000 NS Inj 1,000 ML @ 100 mls/hr IV 1000 / 1000 1000 / 1000 .CONT .Q10H [facility] Rx#:[id number] Rocephin Inj 1,000 MG In NS Inj 100 / 100 100 ML @ 200 mls/hr IV.SIG Q24H [facility] Rx#:[id number] Oral 600 / 600 490 / 490 Anesthesia Amount 1000 / 1000 Output: Urine 1000 / 1000 Estimated Blood Loss 100 / 100 Other: # Voids 1 4 Date of Last Bowel Movement 04/03/18 04/03/18 Narrative: GENERAL: NAD SKIN: Warm and dry. HEAD: Normocephalic. EYES: No scleral icterus. No injection or drainage. NECK: Supple, trachea midline. No JVD or lymphadenopathy. CARDIOVASCULAR: Regular rate and rhythm without murmurs, gallops, or rubs. RESPIRATORY: Breath sounds equal bilaterally. No accessory muscle use. GASTROINTESTINAL: Abdomen soft, non-tender, nondistended. MUSCULOSKELETAL: No cyanosis, or edema. BACK: Nontender without obvious deformity. No CVA tenderness. Results Procedures completed during hospitalization: Lap cholecystectomy April 03, 2018 Pending studies at discharge: Pending at discharge 04/03/18 Surgical [PTH] Routine Labs on day of discharge: Labs from last 24 hours 04/04/18 04/04/18 07:13 07:13 WBC 7.5 RBC 3.50 L Hgb 10.7 L Hct 31.8 L MCV 90.8 MCH 30.5 MCHC 33.6 RDW 13.7 Plt Count 188 MPV 8.0 Sodium 144 Potassium 4.0 Chloride 107 Carbon Dioxide 26.9 Anion Gap 10 BUN 5 L Creatinine 0.85 Estimated GFR 69 L Random Glucose 102 Calcium 8.0 L - Impressions ITS Impressions Abdomen/Pelvis CT 04/01/18 21:14 CONCLUSION: 1. There is focal inflammation within the fat in the right upper quadrant anterior to the liver and abutting the gallbladder fundus and transverse colon. Since the transverse colon does not appear abnormally top considerations include gallbladder inflammation or omental infarct. Given the location and lack of significant gallbladder distention or wall thickening, omental infarct is favored. 2. Questionable 2 mm stone in the gallbladder neck. Depending on the clinical symptoms along could consider gallbladder ultrasound or nuclear medicine hepatobiliary examination to evaluate for signs of cystic duct obstruction. Gallbladder Ultrasound 04/02/18 00:33 CONCLUSION: 1. Trace perihepatic free fluid in the area of inflammation identified on recent CT. Given the appearance on the current ultrasound I feel that it is unlikely that the CT findings are related to acute cholecystitis. The CT findings are most likely related to omental infarct. Suggest follow-up CT imaging to confirm resolution, if needed. 2. Gallbladder sludge. 3. Hepatic steatosis. Discharge Plan - Discharge Disposition Patient Disposition: 01 Discharge Home - Discharge Condition Condition: Stable - Discharge Order Discharge Orders: Discharge Order (Routine); Ordered 04/04/18 Ordered By: Emre Harding - Discharge Details Anticipated Discharge Date: 04/02/18 Discharge Comment: Discharge after surgery and cleared by Dr. Jones/General surgery - Physicians Team Primary Care Provider: UNKNOWN, Attending Provider: Emre Harding Other Providers: [email or web address],Insurance ; Rosendo Jones MD
--- NOTE | 2018-04-04 17:27 | P.PN ---
Subjective Interval history: Minimal pain; tolerating PO's. No complaints. Physical Exam Vital signs: Vital Signs 04/03/18 19:14 04/03/18 20:00 04/04/18 00:00 Temperature 98.1 F 98 F 98.5 F Pulse Rate 72 80 69 Respiratory Rate 12 18 18 Blood Pressure 150/74 H 140/64 130/63 Pulse Oximetry 94 L 92 L 04/04/18 04:00 04/04/18 08:00 04/04/18 12:00 Temperature 98.1 F 97.8 F 98.0 F Pulse Rate 53 L 69 65 Respiratory Rate 18 16 18 Blood Pressure 127/59 L 123/60 112/56 L Pulse Oximetry 93 L 93 L 94 L 04/04/18 16:00 Temperature 98.0 F Pulse Rate 67 Respiratory Rate 18 Blood Pressure 125/72 Pulse Oximetry 95 Intake & Output 04/03/18 04/04/18 04/04/18 18:59 06:59 18:59 Intake Total 2700 / 2700 1490 / 1490 1100 / 1100 Output Total 100 / 100 1000 / 1000 Balance 2600 / 2600 490 / 490 1100 / 1100 Weight 192.2 kg Intake: IV 1100 / 1100 1000 / 1000 1100 / 1100 NS Inj 1,000 ML @ 100 mls/hr IV 1000 / 1000 1000 / 1000 1000 / 1000 .CONT .Q10H [facility] Rx#:[id number] Rocephin Inj 1,000 MG In NS Inj 100 / 100 100 / 100 100 ML @ 200 mls/hr IV.SIG Q24H [facility] Rx#:[id number] Oral 600 / 600 490 / 490 Anesthesia Amount 1000 / 1000 Output: Urine 1000 / 1000 Estimated Blood Loss 100 / 100 Other: # Voids 1 4 Date of Last Bowel Movement 04/03/18 04/03/18 - Routine Abdominal Exam Present: wound (Steri-strips dry with minimal old drainage) Results - Labs CBC & Chem 7: 04/04/18 07:13 04/04/18 07:13 Laboratory Results - last 24 hr 04/04/18 04/04/18 07:13 07:13 WBC 7.5 RBC 3.50 L Hgb 10.7 L Hct 31.8 L MCV 90.8 MCH 30.5 MCHC 33.6 RDW 13.7 Plt Count 188 MPV 8.0 Sodium 144 Potassium 4.0 Chloride 107 Carbon Dioxide 26.9 Anion Gap 10 BUN 5 L Creatinine 0.85 Estimated GFR 69 L Random Glucose 102 Calcium 8.0 L - Procedures Lap cholecystectomy April 03, 2018 Assessment and Plan - Assessment (1) Cholecystitis Code(s): K81.9 - Cholecystitis, unspecified Status: Acute Plan: POD #1 lap cholecystectomy; Hb stable Ok for discharge from standpoint Follow up Dr. Rohit Jones in office next week. - Plan Discussed Condition With: Nurse Patient - Attending Attestation I attest that I had a [id number] encounter with the patient on the same day, and personally performed and documented my assessment and findings in the medical record. The following services were provided during this hospital visit: Chart data review, vital sign assessments/reviewing monitor data Review of consultation notes if present Medication orders/review and/or management Ordering and/or reviewing lab tests Ordering and/or interpreting/reviewing x-rays and/or diagnostic studies Care of the patient and discussion of the patient with the care team Documentation time To help prompt me to consider important information that might be impacting today's encounter and assessment, Information from prior notes written by myself or my colleagues may have been "brought forward/copy and pasted" into today's note.
--- NOTE | 2018-04-05 12:32 | ECG ---
Date Performed: 04/03/2018 Time Performed: 13:25:57 PTAGE: 57 years EKG: Sinus rhythm INCOMPLETE RIGHT BUNDLE BRANCH BLOCK BORDERLINE ECG PREVIOUS TRACING 07/24/2016 16.24 Since the previous tracing, no significant change noted DOCTOR: Neil Reyes Interpretating Date/Time 04/05/2018 12:30:38
== END 2018-04-04 17:52 | disposition home or self-care (01) ==
LOC: NEPE 18:02 → INTOOBSV 04-02 01:00 → NEDA 04-02 01:00 → NEPHCDU 04-02 03:51 → N07 04-03 14:03 → N06 04-03 16:12
PROVIDERS: ADMIT Hospitalist; ATTEND Hospitalist